=== PATIENT | female | born 1965 | race Caucasian/White ===

== ENCOUNTER 2025-08-30 15:27 | Emergency (ER) | payer OTHER, SELFPAY ==
--- OUTSIDE RECORDS SUMMARY | 2025-08-21 10:30 | XMS_ITS | Encounter Summary ---
Author Organization [facility] Address [address] [place] [address] Care Team Providers Care Nuclear Physicist Name Role Phone Elizabeth Juares NP Primary Care Provider [phone] Lucila Clark Unavailable [phone] Sea Carvalho MD Unavailable [phone] Reason for Referral * Medications - Authorized Specialty Diagnoses / Procedures Referred By Maria Victoria castellon Referred To Contact Diagnoses Urge incontinence Mine Saeed MD [address] [place] [address] [address] [place] [phone] Phone: tel: fax: Referral ID Status Reason Start Date Expiration Date V isits Requested Visits Authorized [id number] Authorized 08/22/2025 08/21/2026 1 1 * Imaging (Routine) - Closed Specialty Diagnoses / Procedures Referred By Maria Victoria castellon Referred To Contact Diagnoses Urge incontinence Procedures Bladder Scan Mine Saeed MD [address] [place] [address] [address] [place] [address] Phone: tel: fax: Referral ID Status Reason Start Date Expiration Date Visits Re quested Visits Authorized [id number] Closed 08/21/2025 09/20/2026 1 1 Reason for Visit * Reason Comments Follow-up Pt is here for a 3 m th f/u on urge incontinence Encounter Details Date Type Department Care Team ([facility] Contact Info) Description 08/21/2025 10:30 AM EST Office Visit [facility] - Urology [address] [place] [address] Mine Saeed MD [address] [place] [address] [address] [place] [address] Urge incontinence (Primary Dx) Social History Tobacco Use Types Packs/Day Years Used Date Smoking Tobacco: Every Day Cigarettes 0.5 1 Started: 2024; Last attempted to quit: 09/01/2022 Passive Smoke Exposure: Current Smokeless Tobacco: Current Comments:Averaging 3-4 cigar ettes a day Alcohol Use Standard Drinks/Week Comments Not Currently 0 (1 standard drink = 0.6 oz pur e alcohol) [facility] Utilities Answer Date Recorded In the past 12 months has th e electric, gas, oil, or water company threatened to shut off services in your home? No 11/18/2024 Overall Financial Resource Strain (CARDIA) Answe r Date Recorded How hard is it for you to pa y for the very basics like food, housing, medical care, and heating? Not hard at all 11/18/2024 Hunger Vital Sign Answer Date Recorded Within the past 12 months, y ou worried that your food would run out before you got the money to buy more. Never true 11/19/19 25 Within the past 12 months, t he food you bought just didn't last and you didn't have money to get more. Never true 11/18/2024 PRAPARE - Transportation Answer Date Re corded In the past 12 months, has l ack of transportation kept you from medical appointments or from getting medications? No 11/09 In the past 12 months, has l ack of transportation kept you from meetings, work, or from getting things needed for daily living? No 11/18/2024 Housing Stability Vital Sign Answer Nelson e Recorded In the last 12 months, was t here a time when you were not able to pay the mortgage or rent on time? No 11/18/2024 Number of Times Moved in the Last Year Not on fi le 11/18/2024 At any time in the past 12 m onths, were you homeless or living in a longterm (including now)? No 11/18/2024 Depression Answer Date Recorded PHQ-9 Total Score 12 01/24/2025 Interpersonal Safety Answer Date Record ed How often does anyone, kiran quezada family and friends, physically hurt you? Never 11/18/2024 How often does anyone, incltal quezada family and friends, threaten you with harm? Never 11/18/2024 Comments Unknown Sex and Gender Information Value Date Recorded Sex Assigned at Not on file Legal Sex Female 8:16 PM EDT Gender Identity Not on file Sexual Orientation Not on file documented as of this encounter Last Filed Vital Signs Vital Sign Reading Time Taken Comments Blood Pressure 114/80 08/21/2025 10:46 AM EST Pulse 72 08/21/2025 10:46 AM EST Temperature 35.9 C (96.6 F) 08/21/2025 10:46 AM EST Respiratory Rate - - Oxygen Saturation - - Inhaled Oxygen Concentration - - Weight 75 kg (165 lb 6.4 oz) 08/21/2025 10:46 AM EST Height 165.1 cm (5' 5 ) 08/21/2025 10:46 AM EST Body Mass Index 27.52 08/21/2025 10:46 AM EST documented in this encounter Patient Instructions * Patient Instructions* Mine Saeed MD - 08/21/2025 10:30 AM EST [id number] - my chart username documented in this encounter Plan of Treatment Upcoming Encounters Date Type Department Care Team (Late st Contact Info) Description 09/09/2025 3:20 PM EST Office Visit [facility] [address] [place] [address] Andree Sadler MD [address] [place] [address], [address] [address] 09/12/2025 9:45 AM EST Lab [facility] Primary [facility] [address] [address] 09/18/2025 2:15 PM EST Office Visit [facility] [address] [place] [address] Elizabeth Juares, FLORA [address] [place] [address] 10/07/2025 1:15 PM EST Office Visit [facility] [address] [facility] [address] [place] [address] Tamika Christy MD [address] [facility] [address] [place] [address] 11/20/2025 1:30 PM EDT Office Visit [facility] [address] [facility] [address] [place] [address] Sea Bejarano MD [address] [place] [address], [address] [place] [phone] 12/15/2025 11:10 AM EDT Office Visit [facility] [address] [place] [address] [address] [place] [address] Sammi Pettit NP [address] [place] [address], [address] [place] [phone] 12/18/2025 11:30 AM EDT Office Visit [facility] - Urology [address] [facility] [address] [place] [address] Mine Seaed MD [address] [place] [address] [address] [place] [phone] 06/16/2026 11:10 AM EDT Office Visit [facility] [address] [place] [address] [address] [place] [address] Olivia Kelly MD [address] [place] [address] documented as of this encounter Procedures Procedure Name Priority Date/Time Associated Diagnosis Comments BLADDER SCAN Routine 08/21/2025 10:59 AM EST Urge incontinence POCT URINALYSIS DIPSTICK Routine 08/21/2025 10:58 AM EST Urge incontinence documented in this encounter Results * Bladder Scan (08/21/2025 10:59 AM EST) Urine Volume 0 mL Anatomical Region Laterality Modality Ultrasound us Mine Saeed MD IMG US PROCEDURES Final Result * (ABNORMAL) POCT URINALYSIS DIPSTICK NON-AUTO (08/21/2025 10:58 AM EST) COLOR, POC Yellow Clarity, UA Clear Clear Glucose, UA 3+(A) Negative, Not Found Comment:1000 Bilirubin, UA Negative Negative Ketones, Urine Negative other, Negative mg/dL Specific [place], Urine 1.015 1.010, 1.015, 1.020, 1.025 BLOOD, POC Negative Negative pH, UA 6.0 5.0 - 8.0 Protein, UA 1+(A) Negative Comment:30 Nitrite, UA Negative Negative Leukocytes, UA Negative Negative Urine 08/21/2025 10:5 8 AM EST us Mine Saeed MD POINT OF CARE TEST ENTER/EDIT OR DERABLES Final Result documented in this encounter Visit Diagnoses Diagnosis Urge incontinence- Primary documented in this encounter Additional Health Concerns Assessment Noted Time PHQ-9 Depression Total Score: 12 01/24/2 025 3:17 PM EDT documented as of this encounter Care Teams Nuclear Physicist Relationship Specialty Start Date End Date Elizabeth Juares, TREASURY CONSULTANT [address], [address] [address] PCP - General Family Medicine 06/07/22 Lucila Clark PA [address] , [place] [address] Physician Telecom Network Manager Orthopaedic Surgery 09/08/22 Sea Carvalho MD [address] [place] [address], [address] [place] [address] Surgeon General Surgery 11/15/24 documented as of this encounter
--- OUTSIDE RECORDS SUMMARY | 2025-08-29 10:45 | XMS_ITS | Encounter Summary ---
Author Organization [facility] Address [address] [place] [address] Care Team Providers Care Assessment Nurse Practitioner Name Role Phone Elizabeth Juares NP Primary Care Provider [phone] Lucila Clark Unavailable [phone] Sea Carvalho MD Unavailable [phone] Reason for Visit * Reason Comments Rash Shoulder blade x1 we ekItching and burning (feels like sunburn) Encounter Details Date Type Department Care Team (Late st Contact Info) Description 08/29/2025 10:45 AM EST Office Visit [facility] - Primary Care [address] [place] [address] Omaira Rodriguez APRN [address] [facility] 5 [place] [address] Herpes zoster (Primary Dx) Social History Tobacco Use Types Packs/Day Years Used Date Smoking Tobacco: Every Day Cigarettes 0.5 1 Started: 2024; Last attempted to quit: 09/01/2022 Passive Smoke Exposure: Current Smokeless Tobacco: Current Comments:Averaging 3-4 cigar ettes a day Alcohol Use Standard Drinks/Week Comments Not Currently 0 (1 standard drink = 0.6 oz pur e alcohol) [facility] Utilities Answer Date Recorded In the past [...] any time in the past 12 m [facility], were you homeless or living in a alf (including now)? No 11/18/2024 Depression Answer Date Recorded PHQ-9 Total Score 12 01/24/2025 Interpersonal Safety Answer Date Record ed How often does anyone, inclu damien family and friends, physically hurt you? Never 11/18/2024 How often does anyone, inclu damien family and friends, threaten you with harm? Never 11/18/2024 Comments Unknown Sex and Gender Information Value Date Recorded Sex Assigned at Not on file Legal Sex Female 8:16 PM EDT Gender Identity Not on file Sexual Orientation Not on file documented as of this encounter Last Filed Vital Signs Vital Sign Reading Time Taken Comments Blood Pressure 148/78 08/29/2025 10:44 AM EST Pulse - - Temperature 37.1 C (98.7 F) 08/29/2025 10:44 AM EST Respiratory Rate - - Oxygen Saturation - - Inhaled Oxygen Concentration - - Weight 75.5 kg (166 lb 6.4 oz) 08/29/2025 10:44 AM EST Height 165.1 cm (5' 5 ) 08/29/2025 10:44 AM EST Body Mass Index 27.69 08/29/2025 10:44 AM EST documented in this encounter Plan of Treatment Upcoming Encounters Date Type Department Care Team (Late st Contact Info) Description 09/09/2025 3:20 PM EST Office Visit [facility] [address] [place] [address] Andree Sadler MD [address] [place] [address], [address] [place] [address] 09/12/2025 9:45 AM EST Lab [facility] [address] [address] 09/18/2025 2:15 PM EST Office Visit [facility] [address] [place] [phone] Elizabeth Juares NP [address], [place] [phone] 10/07/2025 1:15 PM EST Office Visit [facility] [address] [place] [address] [address] [place] [phone] Tamika Christy MD [address] [place] [address] [address] [place] [address] 11/20/2025 1:30 PM EDT Office Visit [facility] [address] [place] [address] Sea Bejarano MD [address] [place] [address], [address] [place] [address] 12/15/2025 11:10 AM EDT [facility] [address] [place] [address] Sammi Pettit NP [address] [facility], [address] [place] [address] 12/18/2025 11:30 AM EDT Office Visit [facility] [address] [facility] [address] [place] [address] Mine Saeed MD [address] [facility] [address] [place] [address] 06/16/2026 11:10 AM EDT Office Visit [facility] [address] [facility] [address] [place], [place] [phone] Olivia Kelly MD [address] [place] [address] documented as of this encounter Visit Diagnoses Diagnosis Herpes zoster- Primary documented in this encounter Additional Health Concerns Assessment Noted Time PHQ-9 Depression Total Score: 12 025 3:17 PM EDT documented as of this encounter Care Teams Assessment Nurse Practitioner Relationship Specialty Start Date End Date Elizabeth Juares NP [address], [facility] 5 [place] [address] PCP - General Family Medicine 06/07/22 Lucila Clark PA [address], [facility] [address] [place] [address] Physician Masonry Instructor Orthopaedic Surgery 09/08/22 Sea Carvalho MD [address] [place] [address], [address] [place] [phone] Surgeon General Surgery 11/15/24 documented as of this encounter
[2025-08-30] VITALS (11 sets, daily range): BP systolic 136–212; BP diastolic 68–88; PULSE 46–70; RESP 11–27; TEMP 36.6–36.9; O2SAT 95–99; BMI 27.6
--- NOTE | 2025-08-30 15:32 | ED_ITS ---
Discharge Plan Clinical Impressions Clinical Impression: Abdominal pain Instructions Patient Instructions: DI for Acute Abdominal Pain Print Language Print Language: Arabic Discharge ED Provider: Aisha Sahu General Adult HPI General Chief complaint: Abdominal Pain Stated complaint: Abdominal pain Time Seen by Provider: 08/30/25 15:32 History of Present Illness HPI narrative: Patient is a 59-year-old with past medical history significant for coronary artery disease and cholelithiasis presents to the emergency department with abdominal pain. Patient was eating when she developed significant lower abdomen pain that made her sweaty and feel like she was about to pass out. Patients pain is resolved now. Denies dysuria or increased urinary frequency or flank pain. Denies nausea or vomiting. Patient says pain feels different than her biliary colic in the past. States she has had normal bowel movements 1 daily no blood in stool. Related Data Allergies Allergy/AdvReac Type Severity Reaction Status Date / Time latex Allergy Unknown Verified 08/30/25 15:50 allergy reaction [facility] Disclaimer: The information contained in this section may have been updated after the patient was seen, as this information can be updated by other users. Social History Smoking Status: Current every day smoker alcohol intake: never current occupational status: employed Travel in the last 8 weeks?: None ROS Obtained: Yes All systems reviewed & no additional complaints except as documented Physical Exam General General appearance: alert and in no apparent distress Head Head exam: normocephalic Eye Eye exam: Present PERRL ENT ENT exam: Present normal exam and mucous membranes moist Respiratory Respiratory exam: Absent respiratory distress Cardiovascular Cardiovascular exam: Present regular rate and normal rhythm Abdominal Exam Abdominal exam: Present soft and tenderness (suprapubic); Absent distention or guarding Back Exam Back exam: Present normal inspection; Absent CVA tenderness (R) or CVA tenderness (L) Neurological Exam Neurological exam: Present alert and oriented X3 Skin Skin exam: Present warm and dry Medical Decision Making Medical Records Screening: Per USPSTF and CDC recommendations, given the prevalence of disease in our region, it is our hospital?s policy to screen for HIV and viral Hepatitis for all patients aged 18 and over and those with ongoing risk factors. Edwardo Inquiry Pt receiving controlled substance: No Vital Signs: 08/30/25 15:30 08/30/25 15:30 08/30/25 15:35 Temperature 98 F 98 F Temperature Source Oral Oral Pulse Rate 63 64 Pulse Rate [Right] 63 Respiratory Rate 18 18 Blood Pressure 190/79 H 190/79 H Blood Pressure [Right Arm] 190/79 H Blood Pressure Mean [Right Arm] 116 Blood Pressure Source Automatic Cuff Blood Pressure Source [Right Arm] Automatic Cuff Blood Pressure Position Supine Blood Pressure Position [Right Arm] Supine 02 Sat by Pulse Oximetry 98 98 99 Oxygen Delivery Method Room Air Room Air 08/30/25 16:01 08/30/25 16:22 08/30/25 16:39 Temperature Temperature Source Pulse Rate 52 L 55 L 53 L Pulse Rate [Right] Respiratory Rate 13 11 L 21 Blood Pressure 136/68 179/75 H Blood Pressure [Right Arm] Blood Pressure Mean [Right Arm] Blood Pressure Source Blood Pressure Source [Right Arm] Blood Pressure Position Blood Pressure Position [Right Arm] 02 Sat by Pulse Oximetry 95 96 98 Oxygen Delivery Method 08/30/25 17:00 08/30/25 17:30 08/30/25 17:31 Temperature Temperature Source Pulse Rate 46 L 49 L 53 L Pulse Rate [Right] Respiratory Rate 19 20 19 Blood Pressure 176/72 H 166/69 H Blood Pressure [Right Arm] Blood Pressure Mean [Right Arm] Blood Pressure Source Blood Pressure Source [Right Arm] Blood Pressure Position Blood Pressure Position [Right Arm] 02 Sat by Pulse Oximetry 96 95 96 Oxygen Delivery Method Lab Data Lab Results 08/30/25 15:42: WBC 7.0, RBC 4.28, Hgb 13.4, Hct 41.0, MCV 95.8, MCH 31.3 H, MCHC 32.7, RDW 14.9, Plt Count 225, MPV 10.6 H, Neut % (Auto) 50.2, Lymph % (Auto) 37.4, [place] % (Auto) 8.0, Eos % (Auto) 3.4, Baso % (Auto) 0.7, Neut # (Auto) 3.5, Lymph # (Auto) 2.6, [place] # (Auto) 0.6, Eos # (Auto) 0.2, Baso # (Auto) 0.1, PT 10.9, INR 0.98, Sodium 139, Potassium 5.2 H, Chloride 109 H, Carbon Dioxide 25, Anion Gap 10.2, BUN 17, Creatinine 1.30 H, Estimated Creat Clear 56, Estimated GFR 42 L, Est GFR ( Amer) 51 L, Glucose 133 H, Lactate 1.8, Calcium 9.0, Total Bilirubin 0.8, AST 59 H, ALT 30, Alkaline Phosphatase 68, Total Protein 8.2, Albumin 4.1, Globulin 4.1 H, Albumin/Globulin Ratio 1.0 L, Lipase 153, Serum HCG, Qual Negative 08/30/25 16:40: Urine Color Yellow, Urine Appearance Clear, Urine pH 5.5, Ur Specific [place] 1.010, Urine Protein Negative, Urine Glucose (UA) 2+, Urine Ketones Negative, Urine Blood Negative, Urine Nitrate Negative, Urine Bilirubin Negative, Urine Urobilinogen 0.2, Ur Leukocyte Esterase Negative, Urine RBC None, Urine WBC None, Ur Squamous Epith Cells None, Urine Bacteria None 08/30/25 15:42 08/30/25 15:42 Orders (Tests/Meds): ED MEDICATIONS Generic Name Dose Route Start Last Admin Trade Name Freq PRN Reason Stop Dose Admin Sodium Chloride 10 ml 08/30/25 16:10 08/30/25 16:12 Sodium Chloride 0.9% 10ml Syr (Rad Only) IV 09/29/25 16:09 10 ml NEEDED PRN Administration Maintain IV Site Discontinued Medications Generic Name Dose Route Start Last Admin Trade Name Freq PRN Reason Stop Dose Admin Iopamidol 75 ml 08/30/25 16:10 08/30/25 16:12 Iopamidol-370 (76%);100ml Bottle IV 08/30/25 16:11 75 ml ONCE ONE Administration ORDERS Category Date Time Status CT abdomen pelvis w con Stat Cat Scan 08/30/25 15:38 Completed POCUS Point of Care (ER Only) Stat Exams 08/30/25 15:37 Ordered Complete Blood Count Auto Diff Stat Lab 08/30/25 15:42 Completed Comprehensive Metabolic Panel Stat Lab 08/30/25 15:42 Completed HCG Qualitative, Serum Stat Lab 08/30/25 15:42 Completed Lactic Acid Stat Lab 08/30/25 15:42 Completed Lipase Stat Lab 08/30/25 15:42 Completed Prothrombin Time INR Stat Lab 08/30/25 15:42 Completed Urinalysis and Microscopic Stat Lab 08/30/25 16:40 Completed Urine Culture Stat Micro 08/30/25 16:40 Received Medical Decision Narrative: In summary, this 59-year-old female presents to the emergency department today with abdominal pain. On initial evaluation patient is hypertensive. Saturating room air in no acute distress. Differential diagnosis includes but is not limited to AAA, gas urolithiasis pancreatitis aortic dissection, cholcystitis, diverticulitis. Based on these concerns, I ordered CBC CMP lipase lactic acid CT abdomen pelvis with IV contrast UA Patient on multimodal pain prophy however declined symptoms resolved Labs personally reviewed demonstrate mild elevated and creatinine nonactionable at this time recommend follow-up with outpatient PCP CT imaging personally interpreted demonstrate no bowel wall thickening, no Pneumatosis, no bowel obstruction, cholelithiasis without RUQ pain on exam or pericholecystic fluid, aortic calcifications without aneurysm. On reassessment patient continues to have resolution in symptoms and tolerating po, Symptoms could be caused by gas pain or MSK strain but now that symptomas are resolved reassuring. Recommend outpt follow up with PCP Procedures Limited Ultrasound Indication:: abdominal pain Findings:: Indication: abdominal pain Identified structures: The abdominal aorta was examined in transverse plane, from the diaphragmatic hiatus to the aortic bifurcation Findings: Normal Impression: Normal aorta Images were saved to permanent archive The study was technically adequate CPT: 92707-59 This study was performed by me, and I personally interpreted all images/videos. Based on my clinical judgement, these images were [adequate/inadequate] and [did/did not] necessitate further imaging. Critical Care Critical Care Time Critical Care Time: No
--- NOTE | 2025-08-30 15:38 | CT_ITS ---
PROCEDURE INFORMATION: Exam: CT Abdomen And Pelvis With Contrast Exam date and time: 08/30/2025 4:15 PM Age: 59 years old Clinical indication: Abdominal pain; Additional info: Llq pain. PT states she was eating and 10 mins after she started having severe lower abdominal cramping TECHNIQUE: Imaging protocol: Computed tomography of the abdomen and pelvis with contrast. Radiation optimization: All CT scans at this facility use at least one of these dose optimization techniques: automated exposure control; mA and/or kV adjustment per patient size (includes targeted exams where dose is matched to clinical indication); or iterative reconstruction. Contrast material: ISOVUE; Contrast volume: 75 ml; Contrast route: IV; COMPARISON: No relevant prior studies available. FINDINGS: Tubes, catheters and devices: None noted. Lungs: Lung bases appear clear. Heart: No significant coronary calcifications. No cardiomegaly. No significant pericardial effusion. Liver: Normal. No mass. Gallbladder and biliary ducts: Contracted with cholelithiasis. No ductal dilation. Pancreas: Normal. No ductal dilation. Spleen: Normal. No splenomegaly. Adrenal glands: Normal. No mass. Kidneys and ureters: Normal. No hydronephrosis. Stomach and bowel: Duodenal diverticulum. No obstruction. No mucosal thickening. Appendix: No evidence of appendicitis. Intraperitoneal space: Unremarkable. No free air. No significant fluid collection. Retroperitoneal space: No significant retroperitoneal inflammatory changes are noted. Vasculature: Unremarkable. No abdominal aortic aneurysm. Lymph nodes: Unremarkable. No enlarged lymph nodes. Urinary bladder: Unremarkable as visualized. Reproductive: Unremarkable as visualized. Bones/joints: Unremarkable. No acute fracture. Soft tissues: Unremarkable. IMPRESSION: No acute findings.
[2025-08-30 16:01] LABS: Hematocrit 41.0 % (37.0-47.0); Hemoglobin 13.4 g/dL (12.2-16.2); Immature Granulocytes % 0.3 %; Mean Corpuscular HGB Conc 32.7 g/dL (31.8-35.4); Mean Corpuscular Hemoglobin 31.3 pg (27.0-31.2); Mean Corpuscular Volume 95.8 fl (81-99); Nucleated Red Blood Cells % 0 %; Platelet Count 225 K/mm3 (142-424); Red Blood Count 4.28 M/mm3 (4.20-5.40); Red Cell Distribution Width-SD 52.6 fL; White Blood Count 7.0 K/mm3 (4.8-10.8)
[2025-08-30 16:09] LABS: Albumin Level 4.1 g/dl (3.5-5.0); Chloride 109 mmol/L (98-107)
--- OUTSIDE RECORDS SUMMARY | 2025-08-30 16:09 | XMS_ITS | Encounter Summary ---
Author Organization [facility] Address [address] [facility] [address] [place] [address] Care Team Providers Care Delinquent Tax Collection Assistant Name Role Phone Elizabeth Juares NP Primary Care Provider [phone]- [phone] Lucila Clark Unavailable [phone] Sea Carvalho MD Unavailable [phone] Encounter Details Date Type Department Care Team (Latest Contact Info) Description 07/08/2025 Travel Social History Tobacco Use Types Packs/Day Years Used Date Smoking Tobacco: Every Day Cigarettes 0.5 1 Started: 2024; Last attempted to quit: 09/01/2022 Passive Smoke Exposure: Current Smokeless Tobacco: Current Comments:Averaging 3-4 cigar ettes a day Alcohol Use Standard Drinks/Week Comments Not Currently 0 (1 standard drink = 0.6 oz pur e alcohol) [facility] Utilities Answer Date Recorded In the past [...] any time in the past 12 m [facility], were you homeless or living in a retirement (including now)? No 11/18/2024 Depression Answer Date Recorded PHQ-9 Total Score 12 01/24/2025 Interpersonal Safety Answer Date Record ed How often does anyone, incltal damien family and friends, physically hurt you? Never 11/18/2024 How often does anyone, incltal quezada family and friends, threaten you with harm? Never 11/18/2024 Comments Unknown Sex and Gender Information Value Date Recorded Sex Assigned at Not on file Legal Sex Female 8:16 PM EDT Gender Identity Not on file Sexual Orientation Not on file documented as of this encounter Plan of Treatment Upcoming Encounters Date Type Department Care Team (Late st Contact Info) Description 09/09/2025 3:20 PM EST Office Visit [facility] [address] [place] [address] Andree Sadler MD [address] [place] [address], [address] [address] 09/12/2025 9:45 AM EST Lab [facility] - Primary Care [address] [place] [id number] 09/18/2025 2:15 PM EST Office Visit [facility] [address] [place] [id number] Elizabeth Juares, FLORA [address], [place] [id number] 10/07/2025 1:15 PM EST Office Visit [facility] [address] [facility] 104 [place] [address] Tamika Christy MD [address] [facility] [address] [place] [address] 11/20/2025 1:30 PM EDT Office Visit [facility] 401 [facility] 310 [place] [address] Sea Bejarano MD [address] [place] [address], [address] [place] [address] 12/15/2025 11:10 AM EDT Office Visit [facility] [address] [place] [address] 690 [place] [address] Sammi Pettit NP [address] [place] [address], [address] [place] [address] 12/18/2025 11:30 AM EDT Office Visit [facility] - Urology [address] [facility] 302 [place] [address] Mine Saeed MD [address] [place] [address] [address] [place] [address] 06/16/2026 11:10 AM EDT Office Visit [facility] [address] [place] [address] Olivia Kelly MD [address] [place] [address] documented as of this encounter Visit Diagnoses Not on filedocumented in this encounter Additional Health Concerns Assessment Noted Time PHQ-9 Depression Total Score: 12 025 3:17 PM EDT documented as of this encounter Care Teams Delinquent Tax Collection Assistant Relationship Specialty Start Date End Date Elizabeth Juares, HUMAN RESOURCES COMPLIANCE MANAGER [address] R[place], [facility] 5 [place] [address] PCP - General Family Medicine 06/07/22 Lucila Clark PA [address], [facility] 104 [place] [address] Physician Drop Hammer Set Up Operator Orthopaedic Surgery 09/08/22 Sea Carvalho MD [address] [place] [address], [address] [place] [address] Surgeon General Surgery 11/15/24 documented as of this encounter
--- OUTSIDE RECORDS SUMMARY | 2025-08-30 16:09 | XMS_ITS | Encounter Summary ---
Author Organization [facility] Address [address] [facility] [address] [place] [address] Care Team Providers Care Black Top Roller Name Role Phone Elizabeth Juares NP Primary Care Provider [phone]- [phone] Lucila Clark Unavailable [phone] Sea Carvalho MD Unavailable [phone] Encounter Details Date Type Department Care Team (Latest Contact Info) Description 08/21/2025 Travel Social History Tobacco Use Types Packs/Day Years Used Date Smoking Tobacco: Every Day Cigarettes 0.5 1 Started: 2024; Last attempted to quit: 09/01/2022 Passive Smoke Exposure: Current Smokeless Tobacco: Current Comments:Averaging 3-4 cigar ettes a day Alcohol Use Standard Drinks/Week Comments Not Currently 0 (1 standard drink = 0.6 oz pur e alcohol) [facility] Utilities Answer Date Recorded In the [...] any time in the past 12 m [facility], were you homeless or living in a long term (including now)? No 11/18/2024 Depression Answer Date [...] [facility] [address] [place] [address] Andree Sadlre MD [address] [place] [address], [address] [address] 09/12/2025 9:45 AM EST Lab [facility] [address] [place] [id number] 09/18/2025 2:15 PM EST Office Visit [facility] [address] [place] [id number] Elizabeth Juares, FLORA [address], [place] [id number] 10/07/2025 1:15 PM EST Office Visit [facility] [address] [facility] 104 [place] [address] Tamika Christy MD [address] [facility] [address] [place] [address] 11/20/2025 1:30 PM EDT Office Visit [facility] 401 [facility] 310 [place] [address] Sea Bejarano MD [address] [place] [address], [address] [place] [address] 12/15/2025 11:10 AM EDT Office Visit [facility] - [facility] Disease Program [address] [place] [address] 690 [place] [address] Sammi Pettit NP [address] [place] [address], [address] [place] [address] 12/18/2025 11:30 AM EDT Office Visit [facility] - Urology [address] [facility] 302 [place] [address] Mine Saeed MD [address] [place] [address] [address] [place] [address] 06/16/2026 11:10 AM EDT Office Visit [facility] - [facility] Disease Program [address] [place] [address] Olivia Kelly MD [address] [place] [address] documented as of this encounter Visit Diagnoses Not on filedocumented in this encounter Additional Health Concerns Assessment Noted Time PHQ-9 Depression Total Score: 12 025 3:17 PM EDT documented as of this encounter Care Teams Black Top Roller Relationship Specialty Start Date End Date Elizabeth Juares, COMMUNICATIONS EQUIPMENT OPERATOR [address] [place], [facility] 5 [place] [address] PCP - General Family Medicine 06/07/22 Lucila Clark PA [address], [facility] 104 [place] [address] Physician Benefits Coordinator Orthopaedic Surgery 09/08/22 Sea Carvalho MD [address] [place] [address], [address] [place] [address] Surgeon General Surgery 11/15/24 documented as of this encounter
--- OUTSIDE RECORDS SUMMARY | 2025-08-30 16:09 | XMS_ITS | Encounter Summary ---
Author Organization [facility] Address [address] [facility] [address] [place] [address] Care Team Providers Care Pipe Fitter Name Role Phone Elizabeth Juares NP Primary Care Provider [phone]- [phone] Lucila Clark Unavailable [phone] Sea Carvalho MD Unavailable [phone] Encounter Details Date Type Department Care Team ([facility] Contact Info) Description 08/21/2025 Orders Only [facility] [address] [place] [address] Tamika Christy MD [address] [address] Benign hypertension; Coronary atherosclerosis; Hyperlipidemia, not otherwise specified; Type 2 diabetes mellitus, not otherwise specified Social History Tobacco Use Types Packs/Day Years Used Date Smoking Tobacco: Every Day Cigarettes 0.5 1 Started: 2024; Last attempted to quit: 09/01/2022 Passive Smoke Exposure: Current Smokeless Tobacco: Current Comments:Averaging 3-4 cigar ettes a day Alcohol Use Standard Drinks/Week Comments Not Currently 0 (1 standard drink = 0.6 oz pur e alcohol) [facility] Utilities Answer Date Recorded In the past 12 months has e electric, gas, oil, or water company [...] any time in the past 12 m [facility], were you homeless or living in a long-term (including now)? No 11/18/2024 Depression Answer Date [...] [facility] [address] [place] [address] Andree Sadler MD [address] [place] [address], [address] [place] [address] 09/12/2025 9:45 AM EST Lab [facility] [address] [place] 5 [place] [address] 09/18/2025 2:15 PM EST Office Visit [facility] [address] [place] 5 [place] [address] Elizabeth Juares, FLORA [address], [facility] 5 [place] [address] 10/07/2025 1:15 PM EST Office Visit [facility] 1905 [facility] 104 [place] [address] Tamika Christy MD 1905 [facility] 104 [place] [address] 11/20/2025 1:30 PM EDT Office Visit of [facility] - [facility] [address] [place] [address] 310 [place] [address] Sea Bejarano MD [address] [place] [address], [address] [place] [address] 12/15/2025 11:10 AM EDT Office Visit [facility] - Kidney Disease Program 401 [facility] 690 [place] [address] Sammi Pettit NP [address] [place] [address], [address] [place] [address] 12/18/2025 11:30 AM EDT Office Visit [facility] - Urology [address] [facility] 302 [place] [address] Mine Saeed MD [address] [place] [address] [address] [place] [address] 06/16/2026 11:10 AM EDT Office Visit [facility] 401 [facility] 690 [place] [address] Olivia Kelly MD 615 [place] [address] documented as of this encounter Visit Diagnoses Diagnosis Benign hypertension Coronary atherosclerosis Hyperlipidemia, not otherwise specified Type 2 diabetes mellitus, not otherwise specified documented in this encounter Additional Health Concerns Assessment Noted Time PHQ-9 Depression Total Score: 12 025 3:17 PM EDT documented as of this encounter Care Teams Pipe Fitter Relationship Specialty Start Date End Date Elizabeth Juares NP [address] [address] PCP - General Family Medicine 06/07/22 Lucila Clark PA 1905 [address] [facility] 104 [place] [address] Physician Occupational Therapy Director Orthopaedic Surgery 09/08/22 Sea Carvalho MD [address] [place] [address], [address] [place] [address] Surgeon General Surgery 11/15/24 documented as of this encounter
--- OUTSIDE RECORDS SUMMARY | 2025-08-30 16:09 | XMS_ITS | Encounter Summary ---
Author Organization [facility] Address [address] [facility] [address] [place] [address] Care Team Providers Care Tire Center Supervisor Name Role Phone Elizabeth Juares NP Primary Care Provider [phone]- [phone] Lucila Clark Unavailable [phone] Sea Carvalho MD Unavailable [phone] Reason for Visit * Reason Comments Med Refill Encounter Details Date Type Department Care Team ([facility] st Contact Info) Description 02/16/2025 Refill [facility] [address] [place] [address] Elizabeth Juares NP [address], [place] [address] Edema, not otherwise specified Social History Tobacco Use Types Packs/Day Years Used Date Smoking Tobacco: Every Day Cigarettes 0.5 1 Started: 2024; Last attempted to quit: 09/01/2022 Smokeless Tobacco: Never Comments:Averaging 3-4 cigar ettes a day Alcohol Use Standard Drinks/Week Comments Not Currently 0 (1 standard drink = 0.6 oz pur e alcohol) [facility] Utilities Answer Date Recorded In the [...] any time in the past 12 m [facility], were you homeless or living in a long term (including now)? No 11/18/2024 Depression Answer Date Recorded PHQ-9 Total Score 12 01/24/2025 Interpersonal Safety Answer Date Record ed How often does anyone, alleytal damien family and friends, physically hurt you? Never 11/18/2024 How often does anyone, kiran damien family and friends, threaten you with harm? Never 11/18/2024 Comments Unknown Sex and Gender Information Value Date Recorded Sex Assigned at Not on file Legal Sex Female 8:16 PM EDT Gender Identity Not on file Sexual Orientation Not on file documented as of this encounter Miscellaneous Notes * Telephone Encounter - Kaushal Cardozo MA - 02/17/2025 4:48 PM EDT Approving, but needs appt for additional refills. documented in this encounter Plan of Treatment Upcoming Encounters Date Type Department Care Team (Late st Contact Info) Description 09/09/2025 3:20 PM EST Office Visit [facility] [address] [place] [address] Andree Sadler MD [address] [place] [address], [address] [place] [address] 09/12/2025 9:45 AM EST Lab [facility] [address] [facility] 5 [place] [address] 09/18/2025 2:15 PM EST Office Visit [facility] - Primary Care [address] [facility] 5 [place] [address] Elizabeth Juares NP [address], [facility] 5 [place] [address] 10/07/2025 1:15 PM EST Office Visit [facility] 1905 [facility] 104 [place] [id number] [place] [address] [place] [address] 104 [place] [address] 11/20/2025 1:30 PM EDT Office Visit [facility] [address] [place] [address] 310 [place] [address] Sea Bejarano MD [address] [place] [address], [address] [place] [address] 12/15/2025 11:10 AM EDT Office Visit [facility] 401 [facility] 690 [place] [address] Sammi Pettit NP [address] [place] [address], [address] [place] [address] 12/18/2025 11:30 AM EDT Office Visit [facility] - Urology [address] [facility] 302 [place] [address] Mine Saeed MD 401 [facility] [address] [place] [address] 06/16/2026 11:10 AM EDT Office Visit [facility] 401 [facility] 690 [place] [address] Olivia Kelly MD [address] [place] [address] documented as of this encounter Visit Diagnoses Diagnosis Edema, not otherwise specified documented in this encounter Additional Health Concerns Assessment Noted Time PHQ-9 Depression Total Score: 12 025 3:17 PM EDT documented as of this encounter Care Teams Tire Center Supervisor Relationship Specialty Start Date End Date Elizabeth Juares NP [facility] [address] [facility] 5 [place] [address] PCP - General Family Medicine 06/07/22 Lucila Clark PA 1905 [address] [facility] 104 [place] [address] Physician Bale Opener Orthopaedic Surgery 09/08/22 Sea Carvalho MD [address] [place] [address], [address] [place] [address] Surgeon General Surgery 11/15/24 documented as of this encounter
--- OUTSIDE RECORDS SUMMARY | 2025-08-30 16:09 | XMS_ITS | Encounter Summary ---
Author Organization [facility] Address [address] [facility] [address] [place] [address] Care Team Providers Care Striker Out Name Role Phone Elizabeth Juares NP Primary Care Provider [phone]- [phone] Lucila Clark Unavailable [phone] Sea Carvalho MD Unavailable [phone] Encounter Details Date Type Department Care Team (Latest Contact Info) Description 08/19/2025 Travel Social History Tobacco Use Types Packs/Day Years Used Date Smoking Tobacco: Every Day Cigarettes 0.5 1 Started: 2024; Last attempted to quit: 09/01/2022 Passive Smoke Exposure: Current Smokeless Tobacco: Current Comments:Averaging 3-4 cigar ettes a day Alcohol Use Standard Drinks/Week Comments Not Currently 0 (1 standard drink = 0.6 oz pur e alcohol) [facility] Utilities Answer Date Recorded In the past [...] any time in the past [address] [facility], were you homeless or living in a usp (including now)? No 11/18/2024 Depression Answer Date [...] [facility] [address] [place] [address] Andree Sadler MD [address] [place] [address], [address] [address] 09/12/2025 9:45 AM EST Lab [facility] [address] [place] [phone] 09/18/2025 2:15 PM EST Office Visit [facility] [address] [place] [phone] Elizabeth Juares, FLORA [address], [place] [id number] 10/07/2025 1:15 PM EST Office Visit [facility] 1905 [facility] 104 [place] [address] Tamika Christy MD 1905 [facility] [address] [place] [address] 11/20/2025 1:30 PM EDT Office Visit [facility] 401 [facility] 310 [place] [address] Sea Bejarano MD [address] [place] [address], [address] [place] [address] 12/15/2025 11:10 AM EDT Office Visit [facility] [address] [place] [address] 690 [place] [address] Sammi Pettit NP [address] [place] [address], [address] [place] [address] 12/18/2025 11:30 AM EDT Office Visit [facility] - Urology 1868 [facility] 302 [place] [address] Mine Saeed MD [address] [place] [address] [address] [place] [address] 06/16/2026 11:10 AM EDT Office Visit [facility] [address] [place] [address] Olivia Kelly MD [address] [place] [address] documented as of this encounter Visit Diagnoses Not on filedocumented in this encounter Additional Health Concerns Assessment Noted Time PHQ-9 Depression Total Score: 12 025 3:17 PM EDT documented as of this encounter Care Teams Striker Out Relationship Specialty Start Date End Date Elizabeth Juares, VICE PRESIDENT MEDIA RELATIONS [address] R[place], [facility] 5 [place] [address] PCP - General Family Medicine 06/07/22 Lucila Clark PA [address], [facility] 104 [place] [address] Physician Applications Systems Analyst Orthopaedic Surgery 09/08/22 Sea Carvalho MD [address] [place] [address], [address] [place] [address] Surgeon General Surgery 11/15/24 documented as of this encounter
--- OUTSIDE RECORDS SUMMARY | 2025-08-30 16:09 | XMS_ITS | Encounter Summary ---
Author Organization [facility] Address [address] [facility] [address] [place] [address] Care Team Providers Care Bullard Machine Operator Name Role Phone Elizabeth Juares NP Primary Care Provider [phone] Lucila Clark Unavailable [phone] Sea Carvalho MD Unavailable [phone] Reason for Visit * Reason Comments Med Change Request Encounter Details Date Type Department Care Team (Late st Contact Info) Description 04/02/2025 Refill [facility] - Tra[facility] [address] [place] [address] [place] [address] Merlyn Muro MD [address] [place] [address] 2nd Floor Department of Surgery [place], [place] [id number] Social History Tobacco Use Types Packs/Day Years Used Date Smoking Tobacco: Every Day Cigarettes 0.5 1 Started: 2024; Last attempted to quit: 09/01/2022 Smokeless Tobacco: Never Comments:Averaging 3-4 cigar ettes a day Alcohol Use Standard Drinks/Week Comments Not Currently 0 (1 standard drink = 0.6 oz pur e alcohol) [facility] Utilities Answer Date Recorded In the [...] any time in the past 12 m [facility], were you homeless or living in a nursing home (including now)? No 11/18/2024 Depression Answer Date [...] [facility] [address] [place], [place] [address] Andree Sadler MD [address] [place] [address], [address] [place] [address] 09/12/2025 9:45 AM EST Lab [facility] [address] [address] 09/18/2025 2:15 PM EST Office Visit [facility] Physicians - Primary Care [address] [place] 5 [place] [address] Elizabeth Juares, FLORA [address], [place] [address] [place] [address] 10/07/2025 1:15 PM EST Office Visit [facility] 1905 [facility] 104 [place] [address] Tamika Christy MD [address] [facility] [address] [place] [address] 11/20/2025 1:30 PM EDT Office Visit [facility] [address] [place] [address] 310 [place] [address] Sea Bejarano MD [address] [place] [address], [address] [place] [address] 12/15/2025 11:10 AM EDT Office Visit [facility] - Kidney Disease Program [address] [place] [address] 690 [place] [address] Sammi Pettit NP [address] [place] [address], [address] [place] [address] 12/18/2025 11:30 AM EDT Office Visit [facility] - Urology [address] [facility] 302 [place] [address] Mine Saeed MD [address] [place] [address] [address] [place] [address] 06/16/2026 11:10 AM EDT Office Visit [facility] - Kidney Disease Program [address] [place] [address] Olivia Kelly MD [address] [place] [address] documented as of this encounter Visit Diagnoses Not on filedocumented in this encounter Additional Health Concerns Assessment Noted Time PHQ-9 Depression Total Score: 12 025 3:17 PM EDT documented as of this encounter Care Teams Bullard Machine Operator Relationship Specialty Start Date End Date Elizabeth Juares, MICROSYSTEMS ENGINEER [address], [place] [address] [place], [place] [id number] PCP - General Family Medicine 06/07/22 Lucila Clark PA [address], [place] [address] [place], [place] [id number] Physician Fur Storage Clerk Orthopaedic Surgery 09/08/22 Sea Carvalho MD [address] [place] [address], [address] [place] [address] Surgeon General Surgery 11/15/24 documented as of this encounter
--- OUTSIDE RECORDS SUMMARY | 2025-08-30 16:09 | XMS_ITS | Encounter Summary ---
Author Organization [facility] Address [address] [place] [address] Care Team Providers Care Elastic Attacher Overlock Name Role Phone Elizabeth Juares NP Primary Care Provider [phone] Lucila Clark Unavailable [phone] Sea Carvalho MD Unavailable [phone] Encounter Details Date Type Department Care Team (Latest Contact Info) Description 08/29/2025 Travel Social History Tobacco Use Types Packs/Day Years Used Date Smoking Tobacco: Every Day Cigarettes 0.5 1 Started: 2024; Last attempted to quit: 09/01/2022 Passive Smoke Exposure: Current Smokeless Tobacco: Current Comments:Averaging 3-4 cigar ettes a day Alcohol Use Standard Drinks/Week Comments Not Currently 0 (1 standard drink = 0.6 oz pur e alcohol) [facility] Utilities Answer Date Recorded In the [...] any time in the past 12 m [facility], were you homeless or living in a [facility] (including now)? No 11/18/2024 Depression Answer Date [...] [facility] [address] [place] [address] Andree Sdaler MD [address] [place] [address], [address] [address] 09/12/2025 9:45 AM EST Lab [facility] - [facility] [address] [place] [id number] 09/18/2025 2:15 PM EST Office Visit [facility] [address] [place] [id number] Elizabeth Juares, FLORA [address], [place] [id number] 10/07/2025 1:15 PM EST Office Visit [facility] [address] [facility] [address] [place] [address] Tamika Christy MD [address] [facility] [address] [place] [address] 11/20/2025 1:30 PM EDT Office Visit [facility] [address] [facility] 310 [place] [address] Sea Bejarano MD [address] [place] [address], [address] [place] [phone] 12/15/2025 11:10 AM EDT Office Visit [facility] [address] [place] [address] [address] [place] [address] Sammi Pettit NP [address] [place] [address], [address] [place] [address] 12/18/2025 11:30 AM EDT Office Visit [facility] - Urology [address] [facility] [address] [place] [phone] Mine Saeed MD [address] [place] [address] [address] [place] [address] 06/16/2026 11:10 AM EDT Office Visit [facility] [address] [place] [address] Olivia Kelly MD [address] [place] [address] documented as of this encounter Visit Diagnoses Not on filedocumented in this encounter Additional Health Concerns Assessment Noted Time PHQ-9 Depression Total Score: 12 025 3:17 PM EDT documented as of this encounter Care Teams Elastic Attacher Overlock Relationship Specialty Start Date End Date Elizabeth Juares, LOAN REVIEWER [address] [place], [facility] 5 [place] [address] PCP - General Family Medicine 06/07/22 Lucila Clark PA [address], [facility] 104 [place] [address] Physician Fiber Optic Assembly Worker Orthopaedic Surgery 09/08/22 Sea Carvalho MD [address] [place] [address], [address] [place] [address] Surgeon General Surgery 11/15/24 documented as of this encounter
--- OUTSIDE RECORDS SUMMARY | 2025-08-30 16:09 | XMS_ITS | Encounter Summary ---
Author Organization [facility] Address [address] [place] [address] Care Team Providers Care Repairer Typewriter Name Role Phone Elizabeth Juares NP Primary Care Provider [phone]- [phone] Lucila Clark Unavailable [phone] Sea Carvalho MD Unavailable [phone] Encounter Details Date Type Department Care Team ([facility] Contact Info) Description 07/11/2025 [facility] [address] [place] [address] Mine Saeed MD [address] [place] [address] [address] [place] [address] Social History Tobacco Use Types Packs/Day Years [...] any time in the past 12 m [facility], were you homeless or living in a [place] [facility] (including now)? No 11/18/2024 Depression Answer Date Recorded PHQ-9 Total Score 12 01/24/2025 Interpersonal Safety Answer Date Record ed How often does anyone, incltal damien family and friends, physically hurt you? Never 11/18/2024 How often does anyone, alleytal damien family and friends, threaten you with harm? Never 11/18/2024 Comments Unknown Sex and Gender Information Value Date Recorded Sex Assigned at Not on file Legal Sex Female 8:16 PM EDT Gender Identity Not on file Sexual Orientation Not on file documented as of this encounter Miscellaneous Notes * Telephone Encounter - Shelly Najera - 07/11/2025 3:20 PM EDT Pt called and wants Dr Saeed to know the medication ( she doesn't remember name) , was not approved to be pre - auth by [employer]. Pt cb# [phone]. documented in this encounter Plan of Treatment Upcoming Encounters Date Type Department Care Team (Late st Contact Info) Description 09/09/2025 3:20 PM EST Office Visit [facility] [address] [place] [address] Andree Sadler MD [address] [place] [address], [address] [place] [address] 09/12/2025 9:45 AM EST Lab [facility] [address] [facility] 5 [place] [address] 09/18/2025 2:15 PM EST Office Visit [facility] [address] [address] Elizabeth Juares NP [address], [facility] 5 [place] [address] 10/07/2025 1:15 PM EST Office Visit [facility] [address] [facility] 104 [place] [id number] [place] [address] [place] [address] 104 [place] [phone] 11/20/2025 1:30 PM EDT Office Visit [facility] [address] [place] [address] Sea Bejarano MD [address] [place] [address], [address] [place] [address] 12/15/2025 11:10 AM EDT Office Visit [facility] [address] [address] Sammi Pettit NP [address] [place] [address], [address] [place] [phone] 12/18/2025 11:30 AM EDT Office Visit [facility] - Urology [address] [facility] 302 [place] [address] Mine Saeed MD [address] [facility] [address] [place] [address] 06/16/2026 11:10 AM EDT Office Visit [facility] [address] [facility] [address] [place], [place] [phone] Olivia Kelly MD [address] [place] [address] documented as of this encounter Visit Diagnoses Not on filedocumented in this encounter Additional Health Concerns Assessment Noted Time PHQ-9 Depression Total Score: 12 025 3:17 PM EDT documented as of this encounter Care Teams Repairer Typewriter Relationship Specialty Start Date End Date Elizabeth Juares NP [facility] [address] [place], [facility] 5 [place] [address] PCP - General Family Medicine 06/07/22 Lucila Clark PA [address], [facility] 104 [place] [address] Physician Spa Coordinator Orthopaedic Surgery 09/08/22 Sea Carvalho MD [address] [place] [address], [address] [place] [address] Surgeon General Surgery 11/15/24 documented as of this encounter
--- OUTSIDE RECORDS SUMMARY | 2025-08-30 16:09 | XMS_ITS | Clinical Summary ---
Author Organization [facility] Address [address] [place] [address] Care Team Providers Care Digital Advisor Name Role Phone Elizabeth Juares NP Primary Care Provider [phone] Lucila Clark Unavailable [phone] Sea Carvalho MD Unavailable [phone] Allergies Active Allergy Reactions Criticality Noted Date Comments Latex 09/26/2022 Medications * This document contains information received from the source organization and may not represent a complete record from that organization. aspirin 81 MG EC tablet Take 1 tablet by mouth 1 (one) time each day. Active Continuous Glucose Rn Cvor (Dexcom G7 Rn Cvor) device 02/14/20 24 Active tenofovir disoproxil fumarate (Viread) 300 MG tabletIndication s:Chronic viral hepatitis B, not otherwise specified Take 1 tablet (300 mg total) by mouth every other day. Take every other day 15 tablet 11 10/31/19 25 Active acetaminophen (Tylenol Extra Strength) 500 MG tablet Take 1,000 mg by mouth every 6 (six) hours if needed for mild pain. 11/15/19 25 Active ezetimibe (Zetia) 10 MG tablet Take 10 mg by mouth 1 (one) time each day. 11/14/19 25 Active pantoprazole (Protonix) 40 MG EC tablet Take 1 tablet (40 mg total) by mouth 1 (one) time each day before breakfast. Do not crush, chew, or split. 30 tablet 11/27/19 25 026 Active Evolocumab (Repatha SureClick) 140 MG/ML solution auto-injector Inject 140 mg under the skin every 14 (fourteen) days. 2.1 mL 5 04/08/20 25 Active glucose blood test strip Use to monitor blood glucose daily 100 each 04/30/20 25 026 Active furosemide (Lasix) 40 MG tabletIndication s:Edema, not otherwise specified TAKE 1 TABLET BY MOUTH IN THE MORNING 90 tablet 05/13/20 25 Active Continuous Glucose Sensor (Dexcom G7 Sensor) miscIndications: Type 2 diabetes mellitus, not otherwise specified APPLY SENSOR TO SKIN FOR CONTINUOUS BLOOD SUGAR MONITORING, REPLACE EVERY 10 DAYS 6 each 05/13/20 25 Active Blood Glucose Monitoring Suppl (FreeStyle Lite) w/Device kitIndications:T ype 2 diabetes mellitus, not otherwise specified USE TO TEST BLOOD SUGAR DAILY 1 kit 05/13/20 25 Active potassium chloride CR (K-Tab) 20 MEQ ER tabletIndication s:Edema, not otherwise specified TAKE 1 TABLET BY MOUTH DAILY ( DO NOT CRUSH, SPLIT OR CHEW) 90 tablet 05/13/20 25 Active FreeStyle lancets USE TO TEST BLOOD SUGAR DAILY 100 each 05/13/20 25 Active estradiol (Estrace) 0.1 MG/GM vaginal cream Apply dime sized amount to fingertip then apply to vagina 3 times per week. 42.5 g 3 05/22/20 25 Active citalopram (CeleXA) 20 MG tabletIndication s:Chronic recurrent major depressive disorder Take 1 tablet by mouth in the morning. 90 tablet 07/08/20 25 026 Active traZODone (Desyrel) 150 MG tablet Take 0.5 tablets by mouth every night. 45 tablet 1 08/19/20 25 026 Active ARIPiprazole (Abilify) 10 MG tablet Take 1 tablet by mouth in the morning for 180 days. 90 tablet 1 08/19/20 25 026 Active Mirabegron ER 50 MG tablet sustained-releas e 24 hourIndications: Urge incontinence Take 50 mg by mouth in the morning. Monitor your blood pressure weekly for the first month and notify office of any significant changes. 30 tablet 11 08/21/20 25 026 Active methylPREDNISolo ne (Medrol Dospak) 4 MG tablets Take as directed on package. 21 tablet 08/29/20 25 025 Active valACYclovir (Valtrex) 500 MG tablet Take 1 tablet by mouth in the morning and 1 tablet in the evening and 1 tablet before bedtime. Do all this for 10 days. 30 tablet 08/29/20 25 025 Active ARIPiprazole (Abilify) 10 MG tabletIndication s:Chronic recurrent major depressive disorder Take 1 tablet by mouth in the morning for 90 days. 30 tablet 2 05/20/20 25 025 Vibegron 75 MG tabletIndication s:Urge incontinence Take 75 mg by mouth in the morning. 90 tablet 3 05/22/20 25 025 Discontinu ed(Cost of medication ) traZODone (Desyrel) 50 MG tablet Take 1 tablet by mouth every night. 90 tablet 07/08/20 25 025 Discontinu ed(Reorder ) Active Problems Problem Noted Date Diagnosed Date Statin not tolerated 04/04/2025 Overview (04/04/2025): Elevated liver enzymes Diabetes mellitus 02/19/2025 Heart valve disorder 02/15/2025 Overview (02/15/2025): ECHO (12/07/2024) demonstrating a left ventricular EF 55-60% with mild MR and mild TR. Coronary atherosclerosis 02/15/2025 Overview (02/28/2025): CAD s/p CABG with ALCANTARA to LAD, SVG to diagonal, SVG to OM, and SVG to PDA. CARDIAC CATHETERIZATION (11/07/2024) demonstrating 90% distal LM, 100% mid LAD, 99% prox D1, 100% prox LCX, 99% diffuse RCA, patent ALCANTARA, occluded SVG grafts. Medical management. Elevated Lp(a), ADMA/SDMA. Benign hypertension 02/15/2025 Hyperlipidemia 02/15/2025 Syncope 12/16/2024 Pain in joint involving shoulder region 12/17/19 Pain in hand and fingers 12/16/2024 Nausea with vomiting 11/20/2024 Abdominal pain 11/20/2024 Scanty vaginal bleeding 11/20/2024 Gastroesophageal reflux disease 07/04/2024 Serum creatinine outside reference range 023 Uncontrolled type 2 diabetes mellitus 02/14/2023 Sleep apnea 02/08/2023 02/08/2023 Peripheral vascular disease 12/05/2022 Cellulitis and abscess of leg, except foot 10/10 Edema 10/10/2022 Elevated blood pressure read ing without diagnosis of hypertension 06/07/2022 Mixed anxiety and depressive disorder 06/07/2022 Encounter for sexually transmitted disease scree joanna 06/07/2022 Acute bronchitis 05/20/2016 Microalbuminuria 01/07/2016 Vitamin B12 deficiency 04/17/2015 Paresthesia of hand 04/15/2015 Pain in lower limb 04/06/2015 Type 2 diabetes mellitus 12/15/2014 Fatigue 12/15/2014 Neuropathy 07/12/2014 Patient encounter status 11/25/2013 Mixed hyperlipidemia 11/25/2013 Benign essential hypertension 11/25/2013 Coronary arteriosclerosis 10/29/2013 Obesity 10/29/2013 Old myocardial infarction 10/29/2013 Tobacco user 10/29/2013 Carpal tunnel syndrome 06/28/2012 Pain of bilateral shoulder regions 06/28/2012 Spinal stenosis of cervical region 06/28/2012 Encounters * This document contains information received from the source organization and may not represent a complete record from that organization. Date Type Department Care Team Description 08/29/2025 10:45 AM EST Office Visit [facility] - Primary [facility] [address] [place] [address] Omaira Rodriguez APRN Herpes zoster (Primary Dx) 08/29/2025 Travel 08/21/2025 10:30 AM EST Office Visit [facility] - Urology [address] [place] [address] Mine Saeed MD Urge incontinence (Primary Dx) 08/21/2025 Travel 08/21/2025 Orders Only [facility] [address] [place] [phone] Tamika Christy MD Benign hypertension; Coronary atherosclerosis; Hyperlipidemia, not otherwise specified; Type 2 diabetes mellitus, not otherwise specified 08/19/2025 Travel 07/11/2025 Telephone [facility] [address] [place] [address] Mine Saeed MD 07/08/2025 Travel 06/17/2025 11:10 AM EDT Office Visit [facility] [address] [place] [address] Olivia Kelly MD Hypertensive chronic kidney disease stage 3 (Primary Dx) 06/17/2025 Travel 06/12/2025 1:30 PM EDT Office Visit [facility] Primary [facility] [address] [place] [address] Elizabeth Juares NP Type 2 diabetes mellitus, not otherwise specified (Primary Dx); Benign essential hypertension; Edema, not otherwise specified; Gastroesophageal reflux disease; Mixed hyperlipidemia 06/12/2025 Travel 06/05/2025 8:30 AM EDT Lab [facility] [address] [place] [address] Type 2 diabetes mellitus, not otherwise specified (Primary Dx); Mixed hyperlipidemia 06/05/2025 Travel from Last 3 Months Immunizations Immunization Administration Dates Next Due Hep A, Adult 12/28/2022,06/28/2022 Pneumococcal Conjugate PCV 20 (Prevnar 20) 06/28 Family History Medical History Relation Name Comments Heart attack Father Atrial fibrillation Mother Relation Name Status Comments Father Mother Social History Tobacco Use Types Packs/Day Years Used Date Smoking Tobacco: Every Day Cigarettes 0.5 1 Started: 2024; Last attempted to quit: 09/01/2022 Passive Smoke Exposure: Current Smokeless Tobacco: Current Comments:Averaging 3-4 cigar ettes a day Alcohol Use Standard Drinks/Week Comments Not Currently 0 (1 standard drink = 0.6 oz pur e alcohol) [facility] Utilities Answer Date Recorded In the [...] any time in the past 12 m [facility], were you homeless or living in [...] on file Sexual Orientation Not on file Last Filed Vital Signs Vital Sign Reading Time Taken Comments Blood Pressure 148/78 08/29/2025 10:44 AM EST Pulse 72 08/21/2025 10:46 AM EST Temperature 37.1 C (98.7 F) 08/29/2025 10:44 AM EST Respiratory Rate 16 06/17/2025 10:29 AM EDT Oxygen Saturation 95% 06/12/2025 12:56 PM EDT Inhaled Oxygen Concentration - - Weight 75.5 kg (166 lb 6.4 oz) 08/29/2025 10:44 AM EST Height 165.1 cm (5' 5 ) 08/29/2025 10:44 AM EST Body Mass Index 27.69 08/29/2025 10:44 AM EST Plan of Treatment Upcoming Encounters Date Type Department Care Team (Late st Contact Info) Description 09/09/2025 3:20 PM EST Office Visit [facility] [address] [place] [phone] Andree Sadler MD [address] [place] [address], [address] [place] [phone] 09/12/2025 9:45 AM EST Lab [facility] [address] [place] [phone] 09/18/2025 2:15 PM EST Office Visit [facility] [address] [place] [address] Elizabeth Juares NP [address], [place] [phone] 10/07/2025 1:15 PM EST Office Visit [facility] [address] [place], [place] [phone] Tamika Christy MD [address] [place] [phone] 11/20/2025 1:30 PM EDT Office Visit [facility] [address] [place] [phone] Sea Bejarano MD [address] [place] [address], [address] [place] [phone] 12/15/2025 11:10 AM EDT Office Visit [facility] [address] [place] [phone] Sammi Pettit NP [address] [facility] [place] [address] 12/18/2025 11:30 AM EDT Office Visit [facility] - Urology [address] [facility] [address] [place] [address] Mine Saeed MD [address] [facility] [address] [place] [address] 06/16/2026 11:10 AM EDT Office Visit [facility] [address] [facility] [address] [place], [place] [phone] Olivia Kelly MD [address] [place] [address] Health Maintenance Due Date Last Done Comments CT Colonography 1966 Colonoscopy 1966 FIT 1966 Sigmoidoscopy 1966 FOBT 06/28/2023 06/28/2022 Pap Smear 06/28/2025 06/28/2022, 11/13/2013 Diabetes: Foot Exam 08/29/2025 08/29/2024 ( Patient Refused) Mammogram 11/18/2025 06/21/2022, 11/10, 11/29/2013 Zoster Vaccines (2 of 2) 11/18/2025 022 (Patient Refused) Postponed from 08/02/2022 (Other Medical Reasons) Diabetes: Hemoglobin A1C 12/03/2025 025, 02/28/2025, 11/18/2024, Additional history exists Lipid Panel 06/05/2026 06/05/2025, 02/10, 11/18/2024, Additional history exists Diabetes: Retinopathy Screening 06/11/2026 06/11/2024 Influenza Vaccine (#1) 2026 2 (Patient Refused) Postponed from 05/12/2025 (Patient Refused) Cervical Cancer Screening 06/28/2027 HPV/Cotest 06/28/2027 06/28/2022 Colorectal Cancer Screening 03/27/2028 FIT-DNA (Cologuard) 03/27/2028 03/27/2025, Pneumococcal Vaccine: 50+ Years Completed 06/28/2022 Hepatitis A Vaccines Completed 12/28/2022, 06/28/20 22 HIV Screening Completed 11/12/2024, 06/07/2022 Hepatitis C Screening Completed 11/12/2024, 022 SDOH Screening Completed 11/18/2024 Depression Risk Screening Completed 01/24/2025, Hepatitis B Vaccines Discontinued 05/08/2025, 05/01/2025, 12/06/2024, Additional history exists BMI Intervention Completed 08/29/2025, 07/2025, 06/12/2025, Additional history exists COVID-19 Vaccine Discontinued DTaP/Tdap/Td Vaccines Discontinued HIB Vaccines Aged Out No longer eligi ble based on patient's age to complete this topic HPV Vaccines Aged Out No longer eligi ble based on patient's age to complete this topic IPV Vaccines Aged Out No longer eligi ble based on patient's age to complete this topic MMR Vaccines Discontinued Meningococcal B Vaccine Aged Out No l onger eligible based on patient's age to complete this topic Meningococcal Vaccine Aged Out No prachi andre eligible based on patient's age to complete this topic Rotavirus Vaccines Aged Out No longer eligible based on patient's age to complete this topic Procedures Procedure Name Priority Date/Time Associated Diagnosis Comments BLADDER SCAN Routine 08/21/2025 10:59 AM EST Urge incontinence POCT URINALYSIS DIPSTICK Routine 08/21/2025 10:58 AM EST Urge incontinence CMP COMPREHENSIVE METABOLIC PANEL Routine 06/05/2025 7:12 AM EDT Mixed hyperlipidemia LIPID PANEL Routine 06/05/2025 7:12 AM EDT Mixed hyperlipidemia HEMOGLOBIN A1C Routine 06/05/2025 7:12 AM EDT Type 2 diabetes mellitus, not otherwise specified LAB COLOGUARD COLON CANCER SCREEN Routine 03/27/2025 5:53 AM EDT Encounter for screening for malignant neoplasm of colon HEPATITIS C AB W/REFL TO HCV RNA, QN, PCR Routine 11/12/2024 6:23 PM EST IMAGE-GUIDED PAP W/AGE BASED SCR PROTOCOLS ([id number]) Routine 06/28/2022 3:22 PM EDT POCT OCCULT BLOOD STOOL Routine 06/28/2022 2:36 PM EDT Encounter for routine general gynecological examination without abnormal finding, not otherwise specified BI MAMMOGRAM SCREENING BILATERAL Routine 06/21/2022 1:36 PM EDT Breast cancer screening HIV-1 AND HIV-2 ANTIBODIES Routine 06/07/2022 3:38 PM EDT from Last 3 Months or Most Recently Relevant to Health Maintenance Results * Bladder Scan (08/21/2025 10:59 AM EST) Urine Volume 0 mL Anatomical Region Laterality Modality Ultrasound Result Ruthie Saeed MD [facility] US PROCEDURES Final Result * (ABNORMAL) POCT URINALYSIS DIPSTICK NON-AUTO (08/21/2025 10:58 AM EST) COLOR, POC Yellow Clarity, UA Clear Clear Glucose, UA 3+(A) Negative, Not Found Comment:1000 Bilirubin, UA Negative Negative Ketones, Urine Negative other, Negative mg/dL Specific [place], Urine 1.015 1.010, 1.015, 1.020, 1.025 BLOOD, POC Negative Negative pH, UA 6.0 5.0 - 8.0 Protein, UA 1+(A) Negative Comment:30 Nitrite, UA Negative Negative Leukocytes, UA Negative Negative Urine 08/21/2025 10:5 8 AM EST Result Ruthie Saeed MD POINT OF CARE TEST ENTER/EDIT OR DERABLES Final Result * (ABNORMAL) Hemoglobin A1c (06/05/2025 7:12 AM EDT) Hemoglobin A1C 6.3(H) <5.7 % [facility] Comment: For someone without known diabetes, a hemoglobin A1c value between 5.7% and 6.4% is consistent with prediabetes and should be confirmed with a follow-up test. For someone with known diabetes, a value <7% indicates that their diabetes is well controlled. A1c targets should be individualized based on duration of diabetes, age, comorbid conditions, and other considerations. This assay result is consistent with an increased risk of diabetes. Currently, no consensus exists regarding use of hemoglobin A1c for diagnosis of diabetes for children. Blood Venous blood specimen / Unknown 06/05/2025 7:12 AM EDT 06/05/2025 1:47 PM EDT Narrative Resulting Agency Comment Performing Organization Information: Site ID: CB Name: [facility] Address: [address] [place] [phone] Director: Jason Lawrence us Elizabeth Juares HOUSING COURT JUDGE LAB BLOOD ORDERABLES Final Result [address] [address] * (ABNORMAL) Lipid panel (06/05/2025 7:12 AM EDT) TRIGLYCERIDES 219(H) <=149 mg/dL [facility] CHOLESTEROL, TOTAL 140 <=199 mg/dL [facility] HDL CHOLESTEROL 33(L) 40 - 60 mg/dL [facility] LDL-CHOLESTEROL 63 <=130 mg/dL [facility] CHOL/HDLC RATIO 4.24 0.00 - 4.49 Ratio [facility] CHOLESTEROL VLDL CALCULATION 44 mg/dL [facility] LDL/HDL RATIO 1.92 Ratio [facility] Blood Venous blood specimen / Unknown 06/05/2025 7:12 AM EDT 06/05/2025 1:47 PM EDT Narrative Resulting Agency Comment Performing Organization Information: Site ID: MARY Name: [facility] Address: [address] [place] [id number] Director: Dr. Malvin Kemp Elizabeth Juares HOUSING COURT JUDGE LAB BLOOD ORDERABLES Final Result Performing Organization Address City/[facility]/ZIP Co de Phone Number [facility] [address] [place] [phone], * (ABNORMAL) Comprehensive metabolic panel (06/05/2025 7:12 AM EDT) GLUCOSE 115(H) 74 - 109 mg/dL [facility] UREA NITROGEN (BUN) 19 7 - 25 mg/dL [facility] CREATININE 1.40(H) 0.60 - 1.20 mg/dL [facility] BUN/CREATININE RATIO 13.6 6.0 - 22.0 [facility] SODIUM 144 136 - 145 mmol/L [facility] POTASSIUM 4.5 3.5 - 5.1 mmol/L [facility] CHLORIDE 106 98 - 110 mmol/L [facility] CARBON DIOXIDE 30 21 - 31 mmol/L [facility] CALCIUM 8.5(L) 8.6 - 10.2 mg/dL [facility] PROTEIN, TOTAL 6.9 6.4 - 8.9 Gram/dL [facility] ALBUMIN 3.4(L) 3.5 - 5.2 Gram/dL [facility] GLOBULIN 3.5 2.0 - 3.5 Gram/dL [facility] A/G Ratio 1.0 1.0 - 2.5 [facility] BILIRUBIN, TOTAL 0.5 0.3 - 1.0 mg/dL [facility] ALKALINE PHOSPHATASE 105(H) 34 - 104 Units/Lite r [facility] AST 30 13 - 39 Units/Lite r [facility] ALT 22 <=24 Units/Lite r [facility] EGFR 44(L) >=60 mL/min/1.7 3m2 [facility] Comment: eGFR calculation performed using the CKD-EPI 2020 equation (race variable excluded) Blood Venous blood specimen / Unknown 06/05/2025 7:12 AM EDT 06/05/2025 1:47 PM EDT Narrative Resulting Agency Comment Performing Organization Information: Site ID: MARY [facility] Address: [address] [place] [phone] Director: Dr. Malvin Kemp Elizabeth Juares HOUSING COURT JUDGE LAB BLOOD ORDERABLES Final Result Performing Organization Address City/[facility]/ZIP Co de Phone Number [facility] [address] [place] [address], * Cologuard?? colon cancer screening (03/27/2025 5:53 AM EDT) NONINV COLON CA DNA+OCC BLD SCRN STL-IMP Negative Negative 04/03/2025 7:59 PM EDT [facility] (CLIA #:[id number]) Comment: The Cologuard (TM) test was performed on this specimen. NEGATIVE TEST RESULT. A negative Cologuard result indicates a low likelihood that a colorectal cancer (CRC) or advanced adenoma (adenomatous polyps with more advanced pre-malignant features) is present. The chance that a person with a negative Cologuard test has a colorectal cancer is less than 1 in 1500 (negative predictive value >99.9%) or has an advanced adenoma is less than 5.3% (negative predictive value 94.7%). These data are based on a prospective cross-sectional study of 10,000 individuals at average risk for colorectal cancer who were screened with both Cologuard and colonoscopy. (Zulema Alicea al, N Engl J Med 2014;370(14):1286- 1297) The normal value (reference range) for this assay is negative. COLOGUARD RE-SCREENING RECOMMENDATION: Periodic colorectal cancer screening is an important part of preventive healthcare for asymptomatic individuals at average risk for colorectal cancer. Following a negative Cologuard result, the [place] [employer] and U.S. Multi-Society Task Force screening guidelines recommend a Cologuard re-screening interval of 3 years. References: [place] [employer] Guideline for Colorectal Cancer Screening: https://www.cancer.org/cancer/qpbhi-fbjakf-klahpu/fqkcgqctq-vrztvahaj-rrcetkb/ac s-rec ommendations.html.; Alf DK, Thomas CR, Chet LopezK, Colorectal Cancer Screening: Recommendations for Physicians and Patients from the U.S. Multi-Society Task Force on Colorectal Cancer Screening , Am J Gastroenterology 2017; 112:0915-4232. TEST DESCRIPTION: Composite algorithmic analysis of stool DNA-biomarkers with hemoglobin immunoassay. Quantitative values of individual biomarkers are not reportable and are not associated with individual biomarker result reference ranges. Cologuard is intended for colorectal cancer screening of adults of either sex, 45 years or older, who are at average-risk for colorectal cancer (CRC). Cologuard has been approved for use by the U.S. FDA. The performance of Cologuard was established in a cross sectional study of average-risk adults aged 50-84. Cologuard performance in patients ages 45 to 49 years was estimated by sub-group analysis of near-age groups. Colonoscopies performed for a positive result may find as the most clinically significant lesion: colorectal cancer [4.0%], advanced adenoma (including sessile serrated polyps greater than or equal to 1cm diameter) [20%] or non- advanced adenoma [31%]; or no colorectal neoplasia [45%]. These estimates are derived from a prospective cross-sectional screening study of 10,000 individuals at average risk for colorectal cancer who were screened with both Cologuard and colonoscopy. (Zulema Alicea al, N Engl J Med 2014;370(14):6112-9263.) Cologuard may produce a false negative or false positive result (no colorectal cancer or precancerous polyp present at colonoscopy follow up). A negative Cologuard test result does not guarantee the absence of CRC or advanced adenoma (pre-cancer). The current Cologuard screening interval is every 3 years. ([place] [employer] and U.S. Multi-Society Task Force). Cologuard performance data in a 10,000 patient pivotal study using colonoscopy as the reference method can be accessed at the following location: www.We.StockTwits/results. Additional description of the Cologuard test process, warnings and precautions can be found at www.[employer] Therapeuticsrd.com. Stool specimen (specimen) 03/27/2025 5:53 AM EDT 03/29/2025 3:52 PM EDT us Elizabeth Juares NP LAB MOLECULAR DIAGNOSTICS ORDERABLES Final Result [facility] (CLIA #:[id number]) [place] [address], * HEPATITIS C AB W/REFL TO HCV RNA, QN, PCR (11/12/2024 6:23 PM EST) Hep C Virus Ab NONREACTIVE Nonreactive 11/12/2024 7:26 PM EST [facility] Core CH Remisol SS Blood 11/12/2024 6:23 PM EST 11/12/2024 6:31 PM EST [facility] LAB - 11/12/2024 7:26 PM EST labs, rad Collect only if other blood is being drawn. Ordered per Hep C Screening Protocol. (CN_[email or web address]_C_SCREEN) us Non-[facility] Provider LAB BLOOD ORDERABLES Final Resu lt [facility] [address] [place] [address], [facility] Remisol Pathology Department [address] [place] [address] * (ABNORMAL) IMAGE-GUIDED PAP W/AGE BASED SCR PROTOCOLS ([id number]) (06/28/2022 3:22 PM EDT) COMMENT [facility] Comment: This order for age-based cervical cancer and STI screening follows ACOG guidelines(PB 168, 140, FZB269). See individual assays for performing site location. Clinical Information [facility] Comment:Normal exam LMP [facility] Comment:NONE GIVEN Pap [facility] Comment:NONE GIVEN Core Biopsy [facility] Comment:NONE GIVEN Source [facility] Comment:Cervix Specimen Adequacy [facility] Comment: Satisfactory for evaluation. Endocervical/transformation zone component present. General Categorization (A) [facility] Comment:EPITHELIAL CELL ABNO RMALITY Interpretation (A) [facility] Comment: Atypical Squamous Cells of Undetermined Significance (ASC-US) Comment [facility] Comment: This Pap test has been evaluated with computer assisted technology. FRANCHISE FIELD CONSULTANT [facility] Comment: SZS, CT(ASCP) CT Screening location: [address] [address] PATHOLOGIST [facility] Comment: Julianne Alaniz MD Board Certified in Anatomic Pathology and Clinical Pathology [phone] (electronic signature) COMMENT [facility] Comment: EXPLANATORY NOTE: The Pap is a screening test for cervical cancer. It is not a diagnostic test and is subject to false negative and false positive results. It is most reliable when a satisfactory sample, regularly obtained, is submitted with relevant clinical findings and history, and when the Pap result is evaluated along with historic and current clinical information. HPV MRNA E6/E7 Detected (A) Not Detected [facility] Comment: Methodology: Health Information Coder-Mediated Amplification This assay detects E6/E7 viral messenger RNA (mRNA) from 14 high-risk HPV types (16,18,31,33,35,39,45,51,52,56,58,59,66,68). Cervical sources are required for HPV testing. If a vaginal source from a patient who has had a total hysterectomy with removal of cervix was submitted, please contact the testing laboratory for alternative testing options. For additional information, please refer to http://education.adsquare/faq/SLW264l5 (This link if provided for information/ educational purposes only.) 06/28/2022 3:22 PM EDT 06/29/2022 10:59 AM EDT Narrative Resulting Agency Comment Performing Organization Information: Site ID: [place] Name: [facility] Address: [address] [place] [id number] Director: Jason Lawrence Elizabeth Juares NP LAB BLOOD ORDERABLES Final Result [facility] [address] [place] [id number] [place] [address] * POCT occult blood, stool (06/28/2022 2:36 PM EDT) OCCULT BLOOD SCREEN, POC Negative Stool 06/28/2022 2:36 PM EDT Elizabeth Juares NP POINT OF CARE TEST ENTER/E DIT ORDERABLES Final Result * Mammogram screening bilateral (06/21/2022 1:36 PM EDT) Anatomical Region Laterality Modality Breast Bilateral Mammography Other 06/21/2022 1:36 PM EDT Narrative 06/22/2022 1:04 PM EDT EXAM: 1. Bilateral digital screening mammogram with CAD. 2. Bilateral digital screening breast tomosynthesis. HISTORY: Routine screening. COMPARISON: 11/29/2013 FINDINGS: There are scattered fibroglandular densities throughout both breasts. No suspicious mass, microcalcifications, or architectural distortion. IMPRESSION: Negative mammogram. BI-RADS 1: Negative RECOMMENDATIONS: Annual screening mammogram. Women over the age of 40 undergoing screening mammography are entered into a reminder system with target due date for the next mammogram. Dictated by: Jenniffer Page MD Signed by Jenniffer Page MD on 06/22/2022 1:02 PM ##### Final ##### Dictated by: JENNIFFER PAGE MD-RAD Dictated DT/TM: 06/22/2022 1:02 pm Interpreted and electronically signed by: JENNIFFER PAGE MD-RAD Signed DT/TM: 06/22/2022 1:02 pm Procedure Note Jenniffer Page MD - 06/22/2022 EXAM: 1. Bilateral digital screening mammogram with CAD. 2. Bilateral digital screening breast tomosynthesis. HISTORY: Routine screening. COMPARISON: 11/29/2013 FINDINGS: There are scattered fibroglandular densities throughout both breasts. Nosuspicious mass, microcalcifications, or architectural distortion. IMPRESSION: Negative mammogram. BI-RADS 1: Negative RECOMMENDATIONS: Annual screening mammogram. Women over the age of 40 undergoing screening mammography are entered intoa reminder system with target due date for the next mammogram. Dictated by: Jenniffer Page MD Signed by Jenniffer Page MD on 21:02 PM ##### Final ##### Dictated by: JENNIFFER PAGE MD-RAD Dictated DT/TM: 06/22/2022 1:02 pm Interpreted and electronically signed by: JENNIFFER PAGE MD-RAD Signed DT/TM: 06/22/2022 1:02 pm us Elizabeth Juares HOUSING COURT JUDGE IMG BI PROCEDURES Final Re sult * HIV-1 and HIV-2 Antibodies (Fourth Generation) (06/07/2022 3:38 PM EDT) HIV-1/HIV-2 Ab NON-REACT RENETTA NON-REACT RENETTA [facility] Comment: HIV-1 antigen and HIV-1/HIV-2 antibodies were not detected. There is no laboratory evidence of HIV infection. PLEASE NOTE: This information has been disclosed to you from records whose confidentiality may be protected by state law. If your state requires such protection, then the state law prohibits you from making any further disclosure of the information without the specific written consent of the person to whom it pertains, or as otherwise permitted by law. A general authorization for the release of medical or other information is NOT sufficient for this purpose. For additional information please refer to http://education.adsquare/faq/SXI775 (This link is being provided for informational/ educational purposes only.) The performance of this assay has not been clinically validated in patients less than 2 years old. 06/07/2022 3:38 PM EDT 06/08/2022 7:40 AM EDT Narrative Resulting Agency Comment Performing Organization Information: Site ID: [place] Name: [facility] Address: [address] [place] [id number] Director: Jason Lawrence M.D. us Elizabeth Juares NP LAB BLOOD ORDERABLES Final Result [address] from Last 3 Months or Most Recently Relevant to Health Maintenance Insurance [place] MEDICAID [employer] Care Teams Digital Advisor Relationship Specialty Start Date End Date Elizabeth Juares NP [facility] Emmanuel SWAIN, [address] [place] [address] PCP - General Family Medicine 06/07/22 Lucila Clark PA [address] [facility] [address] [place] [address] Physician Direct Chill Caster Orthopaedic Surgery 09/08/22 Sea Carvalho MD [address] [place] [address], [address] [place] [address] Surgeon General Surgery 11/15/24
[2025-08-30 16:10] LABS: Potassium 5.2 mmoL/L (3.5-5.1); Sodium 139 mmol/L (136-145)
--- OUTSIDE RECORDS SUMMARY | 2025-08-30 16:10 | XMS_ITS | Clinical Summary ---
Author Organization [facility] Address [address] [place] [address] Care Team Providers Care Box Sorter Name Role Phone None, Physician Primary Care Provider Unavailabl e Allergies Active Allergy Reactions Criticality Noted Date Comments Latex 04/05/2012 Medications aspirin 81 MG tablet Take 81 mg by mouth daily. Active potassium chloride (MICRO-K) 10 MEQ CR capsule Take 2 capsules by mouth daily 60 capsule 0 11/03/19 15 Active Additional Information Patient taking differently: 10 mEqOral Daily, Reported on 12/29/2014 cetirizine (ZYRTEC) 10 MG tabletIndicatio ns:Rhinorrhea Take 1 tablet by mouth daily Take 1 daily for congestion or drainage 30 tablet 0 12/02/19 15 Active benzonatate (TESSALON) 200 MG capsuleIndicati ons:Rhinorrhea Take 1 capsule by mouth 3 (three) times daily as needed for Cough 30 capsule 0 12/02/19 15 Active Cyanocobalamin (VITAMIN B 12 PO) Take by mouth Active furosemide (LASIX) 40 MG tabletIndicatio ns:Benign essential hypertension TAKE ONE TABLET BY MOUTH DAILY 30 tablet 2 02/10/20 16 Active [place]-3 Fatty Acids (FISH OIL) 1000 MG capsule Take 2 capsules by mouth Twice a Day for 30 days 120 capsule 3 10/14/19 17 Active Additional Information Patient taking differently: 1,200 mgOral BID (RT), Reported on 04/13/2017 insulin degludec (TRESIBA) 100 UNIT/ML penIndications: Uncontrolled type 2 diabetes mellitus without complication, without long-term current use of insulin Inject 10 Units into the skin daily 15 mL 3 01/21/20 17 Active Additional Information Patient taking differently: 20 UnitsSubcutaneous Daily, Reported on 04/13/2017 Insulin Pen Needle (NOVOFINE PLUS) 32G X 4 MM MISC Inject 1 each into the skin daily 30 each 11 01/21/20 17 Active metoprolol (LOPRESSOR) 25 MG tabletIndicatio ns:Benign essential hypertension TAKE ONE TABLET BY MOUTH TWICE A DAY 60 tablet 3 01/25/20 17 Active empagliflozin (JARDIANCE) 25 MG tablet Take 1 tablet by mouth daily 30 tablet 5 04/13/20 17 Active lisinopril (PRINIVIL,ZESTR IL) 5 MG tablet TAKE 1 TABLET BY MOUTH ONE TIME A DAY 30 tablet 4 05/21/20 17 Active atorvastatin (LIPITOR) 40 MG tablet TAKE 1 TABLET BY MOUTH ONE TIME A DAY 30 tablet 4 05/21/20 17 Active metFORMIN (GLUCOPHAGE) 1000 MG tablet TAKE 1 TABLET BY MOUTH TWO TIMES A DAY WITH MEALS 180 tablet 2 05/22/20 17 Active glipiZIDE (GLUCOTROL) 10 MG tablet TAKE ONE TABLET BY MOUTH TWICE A DAY BEFORE MEALS 60 tablet 2 05/22/20 17 Active Active Problems Problem Noted Date Diagnosed Date Type 2 diabetes, uncontrolled, with neuropathy 0 01/07/2016 Microalbuminuria 01/07/2016 Hyperlipidemia, mixed 01/07/2016 Mixed hyperlipidemia 01/03/2015 Neuropathy 07/12/2014 Type 2 diabetes mellitus, uncontrolled 4 CAD (coronary artery disease) 10/29/2013 Old myocardial infarction 10/29/2013 Obesity 10/29/2013 Hyperlipidemia 10/29/2013 Diabetes 10/29/2013 S/P CABG (coronary artery bypass graft) 10/29/19 14 Benign essential hypertension 10/29/2013 Tobacco abuse 10/29/2013 S/P cervical spinal fusion 12/27/2012 Cervical stenosis of spinal canal 06/28/2012 Carpal tunnel syndrome 06/28/2012 Shoulder pain, bilateral 06/28/2012 Resolved Problems Problem Noted Date Diagnosed Date Resolved Date Type 2 diabetes, HbA1c goal < 7% 01/03/2015 10/10/2016 Family History Medical History Relation Comments Heart disease Mother heart problems Hyperlipidemia Mother Hypertension Mother Relation Status Comments Brother (Age 47) diabetes/[place] Father Alive Mother Alive Sister Alive Social History Tobacco Use Types Packs/Day Years Used Date Smoking Tobacco: Every Day Cigarettes Smokeless Tobacco: Never Alcohol Use Standard Drinks/Week Comments No 0 (1 standard drink = 0.6 oz pur e alcohol) Comments No Sex and Gender Information Value Date Recorded Sex Assigned at Not on file Legal Sex Female 4:18 PM EST Gender Identity Not on file Sexual Orientation Not on file Last Filed Vital Signs Vital Sign Reading Time Taken Comments Blood Pressure 149/72 10/17/2023 2:27 AM EST Pulse 76 10/17/2023 2:27 AM EST Temperature 36.8 C (98.3 F) 10/16/2023 5:09 PM EST Respiratory Rate 18 10/17/2023 2:27 AM EST Oxygen Saturation 98% 10/17/2023 2:27 AM EST Inhaled Oxygen Concentration - - Weight 83.9 kg (185 lb) 10/16/2023 5:09 PM EST Height 165.1 cm (5' 5 ) 10/16/2023 5:09 PM EST Body Mass Index 30.79 10/16/2023 5:09 PM EST Plan of Treatment Health Maintenance Due Date Last Done Comments CT Colonography 1966 Colonoscopy 1965 Colorectal Cancer Screening 1965 FIT-DNA 1966 FIT 1966 FOBT 1965 Sigmoidoscopy 1966 Hepatitis B (HepB) Vaccine (1 of 3 - 19+ 3-dose series) 1985 Tdap/Td Vaccine >11 yo (1 - Tdap) 1985 Diabetic Eye Exam 10/29/2013 Diabetic Presence of Statin 10/29/2013 Breast Cancer Screening 11/30/2015 11/29/2013, 11/21 Lung Cancer Screening Risk Assessment 2016 RSV 50+ and (1 - Risk 50-74 years 1-dose series) 2016 Shingles (Shingrix) (1 of 2) 2016 Cervical Cancer Screening 11/13/2016 11/13/2013 Diabetic Foot Exam 07/06/2017 07/06/2016 Diabetic Creatinine Level 04/13/20182016, 01/18/2017, 10/10/2016, Additional history exists Diabetic Lipid Panel 04/13/2018 04/13/2017, 01/18/2017, 10/10/2016, Additional history exists Diabetic Hemoglobin A1C 04/08/2024 10/09/19 24, 04/13/2017, 01/18/2017, Additional history exists Annual SDOH Screening 09/11/2024 Influenza Vaccine (#1) 2025 Diabetic ACEI/ARB For Patients with CKD or Hypertension Completed 05/21/2017 Pneumococcal Vaccines >50 yo Completed 06/28/2022 Hepatitis A (HepA) Vaccine Aged Out 12/28/2022, No longer eligible based on patient's age to complete this topic Haemophilus Influenzae Type B (Hib) Vaccine Aged Out No longer eligible based on patient's age to complete this topic Meningococcal ACWY Aged Out No longer eligible based on patient's age to complete this topic Polio (IPV) Aged Out No longer eligi ble based on patient's age to complete this topic Rotavirus (RV) Vaccine Aged Out No lo nger eligible based on patient's age to complete this topic Procedures Procedure Name Priority Date/Time Associated Diagnosis Comments HEMOGLOBIN A1C Routine 04/13/2017 10:55 AM EDT Type 2 diabetes mellitus without complication, with long-term current use of insulin LIPID PANEL Routine 04/13/2017 10:55 AM EDT Mixed hyperlipidemia CREATININE Routine 04/13/2017 10:55 AM EDT Type 2 diabetes mellitus without complication, with long-term current use of insulin MAMMOGRAM DIAGNOSTIC LEFT BREAST Routine 11/29/2013 8:10 AM EDT Breast asymmetry PAP SMEAR Routine 11/13/2013 3:07 PM EST Routine gynecological examination from Last 3 Months or Most Recently Relevant to Health Maintenance Results * (ABNORMAL) Hemoglobin A1c (04/13/2017 10:55 AM EDT) Hemoglobin A1C 8.7(H) 4.0 - 6.0 % 04/13/2017 8:08 PM EDT [facility] Estimated Average Glucose 203 mg/dL 04/13/2017 8:08 PM EDT [facility] Whole Blood BLOOD SPECIMEN FROM PATIENT / Unknown 04/13/2017 10:55 AM EDT 04/13/2017 10:56 AM EDT us Rose Martins MD LAB BLOOD ORDERABLES Final Res ult Performing Organization Address [facility] [place] [address] * Creatinine, serum (04/13/2017 10:55 AM EDT) Creatinine-Bloo d 0.9 0.7 - 1.5 mg/dL 04/13/2017 9:16 PM EDT [facility] Estimated GFR 65 >60 /1.73 m2 04/13/2017 9:16 PM EDT [facility] Comment:Multiply by 1.212 if . Results provided are valid only for patients who are 18 to 70 years of age. Results do not take into account body mass. Plasma BLOOD SPECIMEN FROM PATIENT / Unknown 04/13/2017 10:55 AM EDT 04/13/2017 10:56 AM EDT us Rose Martins MD LAB BLOOD ORDERABLES Final Res ult Performing Organization Address City/[facility]/ZIP [place] [address] * (ABNORMAL) Lipid panel (04/13/2017 10:55 AM EDT) Triglycerides 244(H) 0 - 149 mg/dL 04/13/2017 9:16 PM EDT [facility] Cholesterol 161 0 - 199 mg/dL 04/13/2017 9:16 PM EDT [facility] HDL Cholesterol 36(L) >49 mg/dL 7 9:16 PM EDT [facility] LDL Cholesterol-Calcul ated 76 0 - 100 mg/dL 04/13/2017 9:16 PM EDT [facility] VLDL 49(H) 5 - 40 mg/dL 04/13/2017 9:16 PM EDT [facility] CHOL/HDL Ratio 4.5 RATIO 04/13/2017 9:16 PM EDT [facility] Plasma BLOOD SPECIMEN FROM PATIENT / Unknown 04/13/2017 10:55 AM EDT 04/13/2017 10:56 AM EDT us Rose Martins MD LAB BLOOD ORDERABLES Final Res ult [facility] [address] [place] [address] * Mammogram Diagnostic Left Breast (11/29/2013 8:10 AM EDT) Anatomical Region Laterality Modality Breast [facility] RAD Mammogra phy 11/29/2013 10:0 7 AM EDT Impressions 11/29/2013 10:15 AM EDT IMPRESSION: 1. Small area of architectural distortion is seen on mammography in the area of concern in the left breast 2 o'clock position, but no suspicious sonographic correlate is found. ASSESSMENT: BIRADS CATEGORY 3-probably benign findings RECOMMENDATION(S): 1. Short-term interval imaging follow-up with left diagnostic mammogram and left breast ultrasound in the area of concern in 6 months. Findings were discussed with the patient at the time of the examination. The [place] [employer] recommends annual mammograms for women beginning at age 40. Please remember that some cancers, 8 to 10%, cannot be found by mammography alone. Early cancer detection requires a combination of monthly breast examination by the patient, periodic mammograms, and an annual physical examination. Dictated by: Daren Castellanos M.D. Images and Report reviewed and interpreted by: Daren Castellanos M.D. <PS><Electronically signed by: Daren Castellanos M.D.> 11/29/2013 1013 1007 1007 Narrative 11/29/2013 10:15 AM EDT RADIOLOGY REPORT FACILITY: [facility] UNIT/AGE/GENDER: M.MAMMO OP AGE:48 Y SEX:F PATIENT NAME/: MOLLY FRAIRE Alondra 1965 UNIT NUMBER: [id number] ACCESSION NUMBER: [id number] EXAMINATION(S): 1. Left DIAGNOSTIC Digital MAMMOGRAM with CAD 2. Left BREAST ULTRASOUND DATE: November 29, 2013 HISTORY: 48-year-old female with focal asymmetry detected in the left breast 2-3 o'clock position middle depth on recent screening exam. No personal or family history of breast carcinoma. COMPARISON: Screening mammogram October 24, 2013 BREAST TISSUE DENSITY: Scattered fibroglandular densities (approximately 25-50% glandular tissue). FINDING(S): Mammogram: Left mediolateral view was submitted as well as spot compression views in the craniocaudal and MLO projections in the area of prior mammographic concern. In the left breast 2 to 3 o'clock position, there is a persistent area of architectural distortion and questionable mass, best seen on the MLO projection. This measures 11 x 8 mm. This is not associated with suspicious microcalcification. No additional masses are present. Ultrasound: Dedicated real-time sonography in the left breast 2 to 3 o'clock position shows a small island of dense fibroglandular tissue, 3 cm from the nipple, in the area of recent mammographic concern. No other mass or architectural distortion is seen in this location. There is an incidental dilated duct in the retroareolar portion of the left breast at the 2 o'clock position which is separate from the mammographic abnormality. Given that benign findings were seen on ultrasound in the area of mammographic concern, these could represent benign fibroproliferative changes. However, given their concerning appearance on mammography, further imaging follow-up is recommended. Various options were discussed with the patient including stereotactic biopsy of the lesion in question or short-term interval imaging follow-up. At this time, the patient elects for short-term interval imaging follow-up to document continued stability but will contact our office if she desires biopsy at a future date. Procedure Note Daren Castellanos MD - 11/29/2013 RADIOLOGY REPORT FACILITY: [facility] UNIT/AGE/GENDER: M.MAMMO OP AGE:48 Y SEX:F PATIENT NAME/: MOLLY FRAIRE M 1965 UNIT NUMBER: [id number] ACCESSION NUMBER: [id number] EXAMINATION(S): 1. Left DIAGNOSTIC Digital MAMMOGRAM with CAD 2. Left BREAST ULTRASOUND DATE: November 29, 2013 HISTORY: 48-year-old female with focal asymmetry detected in the leftbreast 2-3 o'clock position middle depth on recent screening exam. Nopersonal or family history of breast carcinoma. COMPARISON: Screening mammogram October 24, 2013 BREAST TISSUE DENSITY: Scattered fibroglandular densities ([id number]% glandular tissue). FINDING(S): Mammogram: Left mediolateral view was submitted as well as spotcompression views in the craniocaudal and MLO projections in the area ofprior mammographic concern. In the left breast 2 to 3 o'clock position, there is a persistent area ofarchitectural distortion and questionable mass, best seen on the MLOprojection. This measures 11 x 8 mm. This is not associated with suspicious microcalcification. No additionalmasses are present. Ultrasound: Dedicated real-time sonography in the left breast 2 to 3o'clock position shows a small island of dense fibroglandular tissue, 3 cmfrom the nipple, in the area of recent mammographic concern. No other mass or architectural distortion is seen in this location. Thereis an incidental dilated duct in the retroareolar portion of the leftbreast at the 2 o'clock position which is separate from the mammographicabnormality. Given that benign findings were seen on ultrasound in the area ofmammographic concern, these could represent benign fibroproliferativechanges. However, given their concerning appearance on mammography,further imaging follow-up is recommended. Various options were discussed with the patient including stereotacticbiopsy of the lesion in question or short-term interval imaging follow-up.At this time, the patient elects for short-term interval imaging follow-upto document continued stability but will contact our office if she desires biopsy at a future date. IMPRESSION: 1. Small area of architectural distortion is seen on mammography in thearea of concern in the left breast 2 o'clock position, but no suspicioussonographic correlate is found. ASSESSMENT: BIRADS CATEGORY 3-probably benign findings RECOMMENDATION(S): 1. Short-term interval imaging follow-up with left diagnostic mammogramand left breast ultrasound in the area of concern in 6 months. Findings were discussed with the patient at the time of the examination. The [place] [employer] recommends annual mammograms for womenbeginning at age 40. Please remember that some cancers, 8 to 10%, cannotbe found by mammography alone. Early cancer detection requires acombination of monthly breast examination by the patient, periodic mammograms, and an annual physical examination. Dictated by: Daren Castellanos M.D. Images and Report reviewed and interpreted by: Daren Castellanos M.D. <PS><Electronically signed by: Daren Castellanos M.D.> 11/29/2013 1013 1007 1007 us Polina Sweat CANCELLATION CLERK IMG MAMMOGRAPHY ORDERABLES Fin al Result * Pap Smear (11/13/2013 3:07 PM EST) PreservCyt Solution SPECIMEN FROM UTERINE CERVIX / Unknown 11/13/2013 3:07 PM EST 11/13/2013 8:36 PM EST Narrative [facility] - 11/15/2013 8:02 AM EST [facility] [address] [place], [place] [id number] * Clinician: Patient Name: Accession Number: FLORA FERRARA RHONDA M [id number] [employer] FOR Collected: [facility] 1965 11/13/2013 [address] Sex: F Received: [facility] [address] Chart #: 11/13/2013 [place] [address]- Reported: 11/15/2013 GYNECOLOGIC CYTOLOGY REPORT Final Report DIAGNOSIS: NEGATIVE (NO EVIDENCE OF INTRAEPITHELIAL LESION OR MALIGNANCY) SPECIMEN ADEQUACY: SATISFACTORY FOR EVALUATION: ENDOCERVICAL MATERIAL PRESENT SPECIMEN SOURCE: THIN PREP CERVICAL/ENDOCERVICAL MENSTRUAL STATUS: LMP: 10/17/2013 Comment: Last pap date: unknown. Last pap results: unknown CPT Codes: (Tech) - 52553, x1 SAFE AND VAULT INSTALLER: QC REVIEW : <Sign Out Signature> SIGNED OUT BY: SUDHA ANNE(ASCP) CC: ROSE MARTINS MD RELATED LABORATORY RESULTS Test Name Collected Result HPV - HIGH RISK 11/13/2013 NEGATIVE PRIOR PATIENT HISTORY: MOLLY FRAIRE The patient history has been collated using the following data: Active db: - Archive db: Last Name, First Name, , 1 arlen. Middle Name Pap smear testing is subject to false negative and false positive results. This result should be interpreted in conjunction with history and clinical findings. ThinPrep specimens have been analyzed by the ThinPrep Imaging System ([place]), an automated imaging and review system. Nick Aguiar M.D. - [employer] Workman Korey Angel M.D. - Director of Cytopathology Tamika Benitez CANCELLATION CLERK PATHOLOGY/CYTOLOGY ORDERABLES Final Result [facility] [address] [place] [address] from Last 3 Months or Most Recently Relevant to Health Maintenance Insurance [facility] MEDICAID COMMUNITY PLAN [employer] [facility] MEDICAID COMMUNITY PLAN Care Teams Box Sorter Relationship Specialty Start Date End Date None, Physician PCP - General 10/12/15
[2025-08-30 16:12] LABS: Blood Urea Nitrogen 17 mg/dl (7-17); Creatinine Clearance Estimated 56 mL/min (50-200); Creatinine,Serum 1.30 mg/dl (0.52-1.04); Estimated Glomerular Filt Rate 42 ml/min (>60); GFR (African American) 51 ML/MIN (>60)
[2025-08-30] MEDS: SODIUM CHLORIDE 0.9% 10ML SYR (RAD ONLY) 10 ML IV (16:12)
[2025-08-30] MEDS: IOPAMIDOL-370 (76%);100ML BOTTLE 75 ML IV (16:12)
[2025-08-30 16:13] LABS: Alanine Aminotransferase 30 U/L (12-78); Albumin/Globulin Ratio 1.0 (1.1-1.8); Alkaline Phosphatase 68 U/L (38-126); Anion Gap 10.2 mEq/L (5-15); Aspartate Amino Transferase 59 U/L (14-36); Bilirubin,Total 0.8 mg/dl (0.2-1.3); Calcium 9.0 mg/dl (8.4-10.2); Carbon Dioxide 25 mmol/L (22.0-30.0); Globulin 4.1 g/dL (1.3-3.2); Glucose 133 mg/dl (74-100); Lipase 153 U/L (23-300); Total Protein,Serum 8.2 g/dl (6.3-8.2)
[2025-08-30 16:14] LABS: HCG Qualitative, Serum Negative (Negative)
[2025-08-30 16:26] LABS: INR 0.98 (0.9-1.1); Prothrombin Time 10.9 seconds (10.1-12.5)
[2025-08-30 16:43] LABS: Microscopic, Urine URINE MICROSCOPIC (MICROSCOPIC)
[2025-08-30 16:45] LABS: Bilirubin,Urine Negative (Negative); Color,Urine YELLOW (Yellow); Glucose,Urine (UA) 2+ (Negative); Ketones,Urine Negative (Negative); Leukocyte Esterase,Urine Negative (Negative); PH,Urine 5.5 (5.0-8.5); Protein,Urine Negative (Negative); Specific Gravity, Urine 1.010 (1.005-1.030); Urobilinogen,Urine 0.2 EU/dl (0.2)
--- NOTE | 2025-08-30 17:39 | PC.NURSE ---
call made to rad to check on scan, they are locked in and reading scan
== END 2025-08-30 18:24 | disposition home or self-care (01) ==
PROVIDERS: Emergency Provider Student in an Organized Health Care Education/Training Program
DX: R10.24 Suprapubic pain (principal); F17.210 Nicotine dependence, cigarettes, uncomplicated
CPT/HCPCS: 74177; 80053; 81001; 83605; 83690; 84703; 85025; 85610; 87086; 99284; 99285; Q9967